=== PATIENT | female | born 1965 | race Caucasian/White ===

== ENCOUNTER 2019-06-20 12:26 | Emergency (ER) | payer MEDICAID ==
[~2019-06-20] VITALS: Ht 162.6 cm; Wt 72.4 kg
--- NOTE | 2019-06-20 13:10 | PHYS DOC ---
Past History Past Medical History: Cancer, COPD, Diabetes, High Cholesterol, Hypothyroid, Seizure, Stroke, Other Additional Past Medical Histor: gout, colon cancer, scoliosis, cererbellar ataxia, Past Surgical History: Other Smoking: Cigarettes, Greater than 1 pack/day Alcohol Use: None Drug Use: None Adult General Chief Complaint Chief Complaint: MECHANICAL FALL HPI HPI Patient is a 54-year-old female with a history of spinal cerebellar ataxia presents to the ED after a fall. Patient states yesterday she slipped on ice on a concrete porch and fell on her left side. Patient reports hitting the left side of her head on the ground without loss of consciousness, but reports see a person who was not really there after. Patient mentions that she normally uses an electric chair for mobility but the chairs broke down currently. Patient endorses 4 falls in the last week. Patient was seen in the ED on June 13, 2019 following a fall on the fourth. Patient states she received an x-ray of her hip and was sent home that night. Patient reports she is on blood thinners for atrial fibrillation. Patient endorses left rib pain, left arm pain, and left upper leg pain that is rated as a 10/10. Patient denies chest pain, shortness of breath, fevers, or n/v/d. Review of Systems Review of Systems Constitutional: Denies fever or chills Eyes: Denies redness or eye pain HENT: Denies nasal congestion or sore throat Respiratory: Denies cough or shortness of breath Cardiovascular: Denies chest pain or palpitations GI: Denies abdominal pain, nausea, or vomiting : Denies dysuria or hematuria Musculoskeletal: Reports left upper arm pain, left rib pain, left upper leg pain. Integument: Denies rash or skin lesions Neurologic: Denies headache, focal weakness or sensory changes Complete systems were reviewed and found to be within normal limits, except as documented in this note. Allergies Allergies Allergies Coded Allergies Type Severity Reaction Last Updated Verified No Known Drug Allergies 06/15/19 No Physical Exam Physical Exam Constitutional: Well developed, well nourished, mild distress, non-toxic appeara nce HENT: Normocephalic, atraumatic, oropharynx moist, TMs clear Eyes: PERRL, EOMI, conjunctiva normal, no discharge Neck: Normal range of motion, no midline tenderness, supple Cardiovascular: Heart rate normal, regular rhythm Lungs & Thorax: Bilateral breath sounds clear to auscultation, no wheezing Abdomen: Soft, no tenderness Skin: Warm, dry, no erythema, no rash Back: No tenderness, no CVA tenderness Extremities: Tenderness to palpation of the left upper arm, left ribs, left upper leg decreased range of motion. No obvious or palpable bony deformity, edema, erythema, ecchymosis. Neurologic: Alert and oriented X 3, normal motor function, normal sensory function, no focal deficits noted Psychologic: Affect normal, judgement normal, mood normal Current Patient Data Vital Signs Vital Signs Date Time Temp Pulse Resp B/P (MAP) Pulse Ox O2 Delivery O2 Flow Rate FiO2 06/20/19 12:37 98.2 81 16 96 Room Air EKG EKG [] Radiology/Procedures Radiology/Procedures PROCEDURE: CT HEAD AND CERVICAL SPINE WO EXAM: CT Head without IV contrast INDICATION: Pain after a fall. TECHNIQUE: Multi-detector row CT images were obtained of the head without the use of IV contrast. All CT scans performed at this facility utilize dose optimization techniques as appropriate to the exam, including the following: Automated exposure control and adjustment of the mA and/or KV according to patient size (this includes techniques or standardized protocols for targeted exams where dose is indication/reason for exam). DLP 816.6 mGycm COMPARISON: None FINDINGS: BRAIN PARENCHYMA: No evidence of acute intraparenchymal hemorrhage or infarct. Mild white matter low density compatible with chronic ischemic microvascular change. VENTRICLES & EXTRA-AXIAL SPACES: Ventricles are within normal limits. Basilar cisterns are patent. No pathologic extra-axial fluid collection or mass. ORBITS: Orbital contents are unremarkable. SINUSES: Visualized paranasal sinuses and mastoid air cells are clear. OSSEOUS & SOFT TISSUES: Calvarium and skull base are intact. IMPRESSION: 1. No acute intracranial process. 2. Mild white matter low-density compatible with chronic ischemic microvascular change. EXAM: CT Cervical Spine without IV contrast INDICATION: Pain after a fall TECHNIQUE: Multi-detector row CT images were obtained through the cervical spine without the use of IV contrast. Post-processing sagittal and coronal reconstructed images were obtained for interpretation. All CT scans performed at this facility utilize dose optimization techniques as appropriate to the exam, including the following: Automated exposure control and adjustment of the mA and/or KV according to patient size (this includes techniques or standardized protocols for targeted exams where dose is indication/reason for exam). DLP 435.8 mGycm COMPARISON: None FINDINGS: CRANIOCERVICAL JUNCTION: Unremarkable. ALIGNMENT: Alignment is within normal limits. OSSEOUS: No evidence of fracture or bone destruction. Well-circumscribed lucency at the anterior aspect of C6 is favored to represent a small intraosseous hemangioma.. DISC SPACES: Mild multilevel degenerative spondylosis with mild narrowing and minimal uncovertebral spurring, best appreciated at C5-C6 and C6-C7. FACET JOINTS: Unremarkable. SPINAL CANAL: Central disc protrusion at C3-C4 and at C4-C5 result in mild central canal narrowing. NEUROFORAMINA: Varying degrees of foraminal narrowing due to predominantly disc degenerative change. SOFT TISSUES: Unremarkable. IMPRESSION: 1. No acute traumatic findings in the cervical spine. 2. There are disc protrusions at C3-C4 and C4-C5 that could potentially impinge on the cervical cord. These could be further evaluated with MRI if clinically warranted. Electronically signed by: Armand Toledo MD (06/20/2019 1:43 PM) [facility] PROCEDURE: CT CHEST ABD PELVIS W/CONTRAST CT CHEST ABD PELVIS W/CONTRAST Indication: Pain after multiple falls. No specific area of pain or tenderness. Exposure: One or more of the following individualized dose reduction techniques were utilized for this examination: 1. Automated exposure control 2. Adjustment of the mA and/or kV according to patient size 3. Use of iterative reconstruction technique. Technique: Intravenous contrast was given. No oral contrast per request. Comparison: None CHEST: Main central pulmonary arteries are grossly patent. Mild irregularity of the wall of the ascending aorta is likely due to pulsatility artifact. Ascending aorta measures 3.4 cm diameter. No evidence of aortic aneurysm or definite dissection. The proximal great vessels appear patent. Visualized thyroid appears unremarkable. Small axillary lymph nodes bilaterally, measuring up to 9 mm in short axis. Mildly prominent bilateral hilar and mediastinal lymph nodes. Precarinal lymph node measures 9 mm short axis. No definite pathologic lymph node enlargement is suspected. Coronary artery calcifications. No evidence of pericardial effusion. No significant pleural effusion. Esophagus appears unremarkable. Small noncalcified right upper lobe pulmonary nodule, measures 3 mm, series 4, image 41. No evidence of consolidating infiltrate. No evidence of pneumothorax. Trachea and mainstem bronchi are patent. Mild degenerative spondylosis. Vertebral body height and alignment are intact. No evidence of a displaced rib fracture, although a specific area of point tenderness is not known. Abdomen pelvis: Liver is mildly enlarged. Liver may be slightly hypodense as can be seen with steatosis. Focal area of relative increased density within the central liver along the central portal veins. This has an irregular morphology and appears to conform to the adjacent anatomy rather than anatomic distortion and mass effect. Therefore this may represent an area of focal fatty sparing rather than an actual mass. Measures about 3.6 cm. No other liver lesion is identified. Spleen is not enlarged. Spleen demonstrates a heterogeneous density pattern, slightly greater density along its periphery. Significance uncertain. Pancreas appears unremarkable. No evidence of adrenal mass. Kidneys demonstrate symmetric enhancement. The right kidney demonstrates a lobulated morphology with areas of cortical atrophy/scarring. Small hypodense lesion in the right kidney measures 8 mm, too small to characterize but may represent a cyst. Low-density lesion at the posterior upper pole of the right kidney measures 15 mm and 25 Hounsfield units, slightly greater than what would be seen with a simple cyst. No evidence of hydronephrosis. No evidence of perinephric stranding. Nonobstructive 5 mm calculus in the lower pole the right kidney. Gallbladder surgically absent. Aorta mildly calcified without aneurysm. No evidence of pathologic lymph node enlargement. Stomach is not abnormally distended. No significant small bowel dilatation. Question of mild wall thickening of the duodenum and jejunum but no evidence of adjacent inflammatory stranding. Left lower quadrant ostomy is noted containing some herniated fat. Mild wall thickening of the colon distal to the colostomy may just be due to nondistention. No evidence of acute colitis or paracolonic fatty stranding. The appendix is not clearly visualized. No significant ascites. No evidence of pneumoperitoneum. Urinary bladder mildly distended without abnormal wall thickening. No evidence of pelvic mass. Vertebral body height and alignment are intact. Degenerative changes of the spine and facet joints. Minimal anterolisthesis of L4 relative to L3 and L5, likely degenerative. IMPRESSION: 1. Prominent thoracic lymph nodes, may just be reactive. No convincingly pathologic enlargement is seen. 2. Tiny 3 mm right upper lobe pulmonary nodule. As per revised Fleischner guidelines, no follow-up is necessary if patient is low risk. If high risk, follow-up chest scan in 12 months. 3. Suspect mild hepatomegaly with steatosis. 4. Area of mild relative hyperdensity in the portal region of the liver, does not demonstrate masslike configuration, therefore may just represent focal area of geographic fatty sparing. Depending on clinical concern, this could be further evaluated with outpatient MR of the liver. 5. Multiple areas of cortical scarring or atrophy in the right kidney. 6. Nonobstructive 5 mm right lower pole renal calculus. 7. Low-density lesion at the left kidney, measures slightly greater than simple cystic density. This may represent a slightly complex or hemorrhagic cyst, but solid mass difficult to exclude. Could be further evaluated with outpatient renal ultrasound. 8. Mild wall thickening of the colon distal to the colostomy, probably just due to nondistention. Electronically signed by: Elvia Hsu MD (06/20/2019 3:08 PM) [facility] Course & Med Decision Making Course & Med Decision Making Pertinent Labs and Imaging studies reviewed. (See chart for details) Patient with a history of spinal cerebellar ataxia presents to the ED fall yesterday. Mechanism: Patient slipped on ice and fell on her left side onto the concrete striking her head. Patient worked up in the ED for a fall on the seventh normal imaging the hip. Due to increased frequency of falls and history of anticoagulation medication order labs and imaging to assess. Imaging unremarkable for fractures or bleeding. Extensive discussion with patient regarding imaging findings including pulmonary nodule and need for follow-up with PCP. Patient states she has Valium and hydrocodone at home for pain. We'll send home with Lidoderm patches, naproxen, and Spirometer. Patient was thankful and agreeable with plan. Patient stable for discharge with outpatient follow-up with PCP. Discussed findings and plan with patient and family, who acknowledge understanding and agreement. Dragon Disclaimer Dragon Disclaimer This electronic medical record was generated, in whole or in part, using a voice recognition dictation system. Departure Departure: Impression: Primary Impression: Fall Additional Impressions: Shoulder pain Chest wall contusion Disposition: 01 HOME, SELF-CARE Condition: STABLE Referrals: PCP,NO (PCP) Patient Instructions: Blunt Chest Trauma, Fall Prevention and Home Safety, [id number], Incentive Spirometer, Shoulder Pain, [id number] Scripts Lidocaine/Menthol (LIDOPATCH) 1 Each Adh..patch 1 MISAEL TP BID for pain for 30 Days, #[address] patch on clear area and leave on for first 12 hours. Remove for next 12 hours before placing a new patch. Prov: ELVIA LASSITER DO 06/20/19 Naproxen (NAPROXEN) 375 Mg Tablet. 375 MG PO TID PRN for PAIN, #30 TAB Prov: ELVIA LASSITER DO 06/20/19 Problem Qualifiers Primary Impression: Fall Encounter type: initial encounter Qualified Codes: W19.XXXA - Unspecified fall, initial encounter Additional Impressions: Shoulder pain Chronicity: acute Laterality: left Qualified Codes: M25.512 - Pain in left shoulder Chest wall contusion Encounter type: initial encounter Laterality: left Qualified Codes: S20.212A - Contusion of left front wall of thorax, initial encounter ELVIA LASSITER DO Jun 20, 2019 13:10
[2019-06-20] MEDS ORDERED: IV NORMAL SALINE 1,000ML 1,000 ML IV ONE (13:15)
[2019-06-20 13:22] LABS: BASO # 0.1 x10^3/uL (0.0-0.2); BASO % 1 % (0-3); EOS # 0.3 x10^3/uL (0.0-0.7); EOS % 4 % (0-3); HEMATOCRIT 39.4 % (36.0-47.0); HEMOGLOBIN 13.7 g/dL (12.0-15.5); LYMPH % 28 % (24-48); MEAN CORPUSCULAR HEMOGLOBIN 32 pg (25-35); MEAN CORPUSCULAR HGB CONC 35 g/dL (31-37); MEAN CORPUSCULAR VOLUME 91 fL (79-100); MONO # 0.6 x10^3/uL (0.0-1.1); MONO % 8 % (0-9); NEUT # 4.2 x10^3uL (1.8-7.7); NEUT % 59 % (31-73); PLATELET COUNT 260 x10^3/uL (140-400); RED BLOOD COUNT 4.35 x10^6/uL (3.50-5.40); WHITE BLOOD COUNT 7.2 x10^3/uL (4.0-11.0)
[2019-06-20 13:31] LABS: CALCIUM 8.3 mg/dL (8.5-10.1); CREATININE 0.8 mg/dL (0.6-1.0); GFR 74.5; POTASSIUM 4.1 mmol/L (3.5-5.1)
[2019-06-20 13:46] LABS: ALBUMIN 3.2 g/dL (3.4-5.0); MAGNESIUM 2.1 mg/dL (1.8-2.4); TOTAL BILIRUBIN 0.2 mg/dL (0.2-1.0); TOTAL PROTEIN 6.5 g/dL (6.4-8.2)
--- NOTE | 2019-06-20 13:46 | RAD ---
EXAM: CT Head without IV contrast INDICATION: Pain after a fall. TECHNIQUE: Multi-detector row CT images were obtained of the head without the use of IV contrast. All CT scans performed at this facility utilize dose optimization techniques as appropriate to the exam, including the following: Automated exposure control and adjustment of the mA and/or KV according to patient size (this includes techniques or standardized protocols for targeted exams where dose is indication/reason for exam). DLP 816.6 mGycm COMPARISON: None FINDINGS: BRAIN PARENCHYMA: No evidence of acute intraparenchymal hemorrhage or infarct. Mild white matter low density compatible with chronic ischemic microvascular change. VENTRICLES & EXTRA-AXIAL SPACES: Ventricles are within normal limits. Basilar cisterns are patent. No pathologic extra-axial fluid collection or mass. ORBITS: Orbital contents are unremarkable. SINUSES: Visualized paranasal sinuses and mastoid air cells are clear. OSSEOUS & SOFT TISSUES: Calvarium and skull base are intact. IMPRESSION: 1. No acute intracranial process. 2. Mild white matter low-density compatible with chronic ischemic microvascular change. EXAM: CT Cervical Spine without IV contrast INDICATION: Pain after a fall TECHNIQUE: Multi-detector row CT images were obtained through the cervical spine without the use of IV contrast. Post-processing sagittal and coronal reconstructed images were obtained for interpretation. All CT scans performed at this facility utilize dose optimization techniques as appropriate to the exam, including the following: Automated exposure control and adjustment of the mA and/or KV according to patient size (this includes techniques or standardized protocols for targeted exams where dose is indication/reason for exam). DLP 435.8 mGycm COMPARISON: None FINDINGS: CRANIOCERVICAL JUNCTION: Unremarkable. ALIGNMENT: Alignment is within normal limits. OSSEOUS: No evidence of fracture or bone destruction. Well-circumscribed lucency at the anterior aspect of C6 is favored to represent a small intraosseous hemangioma.. DISC SPACES: Mild multilevel degenerative spondylosis with mild narrowing and minimal uncovertebral spurring, best appreciated at C5-C6 and C6-C7. FACET JOINTS: Unremarkable. SPINAL CANAL: Central disc protrusion at C3-C4 and at C4-C5 result in mild central canal narrowing. NEUROFORAMINA: Varying degrees of foraminal narrowing due to predominantly disc degenerative change. SOFT TISSUES: Unremarkable. IMPRESSION: 1. No acute traumatic findings in the cervical spine. 2. There are disc protrusions at C3-C4 and C4-C5 that could potentially impinge on the cervical cord. These could be further evaluated with MRI if clinically warranted. Electronically signed by: Armand Toledo MD (06/20/2019 1:43 PM) [facility]
[2019-06-20] MEDS ORDERED: IOHEXOL 300 MG/ML 75 ML VIAL. IV ONE (14:00)
--- NOTE | 2019-06-20 15:11 | RAD ---
CT CHEST ABD PELVIS W/CONTRAST Indication: Pain after multiple falls. No specific area of pain or tenderness. Exposure: One or more of the following individualized dose reduction techniques were utilized for this examination: 1. Automated exposure control 2. Adjustment of the mA and/or kV according to patient size 3. Use of iterative reconstruction technique. Technique: Intravenous contrast was given. No oral contrast per request. Comparison: None CHEST: Main central pulmonary arteries are grossly patent. Mild irregularity of the wall of the ascending aorta is likely due to pulsatility artifact. Ascending aorta measures 3.4 cm diameter. No evidence of aortic aneurysm or definite dissection. The proximal great vessels appear patent. Visualized thyroid appears unremarkable. Small axillary lymph nodes bilaterally, measuring up to 9 mm in short axis. Mildly prominent bilateral hilar and mediastinal lymph nodes. Precarinal lymph node measures 9 mm short axis. No definite pathologic lymph node enlargement is suspected. Coronary artery calcifications. No evidence of pericardial effusion. No significant pleural effusion. Esophagus appears unremarkable. Small noncalcified right upper lobe pulmonary nodule, measures 3 mm, series 4, image 41. No evidence of consolidating infiltrate. No evidence of pneumothorax. Trachea and mainstem bronchi are patent. Mild degenerative spondylosis. Vertebral body height and alignment are intact. No evidence of a displaced rib fracture, although a specific area of point tenderness is not known. Abdomen pelvis: Liver is mildly enlarged. Liver may be slightly hypodense as can be seen with steatosis. Focal area of relative increased density within the central liver along the central portal veins. This has an irregular morphology and appears to conform to the adjacent anatomy rather than anatomic distortion and mass effect. Therefore this may represent an area of focal fatty sparing rather than an actual mass. Measures about 3.6 cm. No other liver lesion is identified. Spleen is not enlarged. Spleen demonstrates a heterogeneous density pattern, slightly greater density along its periphery. Significance uncertain. Pancreas appears unremarkable. No evidence of adrenal mass. Kidneys demonstrate symmetric enhancement. The right kidney demonstrates a lobulated morphology with areas of cortical atrophy/scarring. Small hypodense lesion in the right kidney measures 8 mm, too small to characterize but may represent a cyst. Low-density lesion at the posterior upper pole of the right kidney measures 15 mm and 25 Hounsfield units, slightly greater than what would be seen with a simple cyst. No evidence of hydronephrosis. No evidence of perinephric stranding. Nonobstructive 5 mm calculus in the lower pole the right kidney. Gallbladder surgically absent. Aorta mildly calcified without aneurysm. No evidence of pathologic lymph node enlargement. Stomach is not abnormally distended. No significant small bowel dilatation. Question of mild wall thickening of the duodenum and jejunum but no evidence of adjacent inflammatory stranding. Left lower quadrant ostomy is noted containing some herniated fat. Mild wall thickening of the colon distal to the colostomy may just be due to nondistention. No evidence of acute colitis or paracolonic fatty stranding. The appendix is not clearly visualized. No significant ascites. No evidence of pneumoperitoneum. Urinary bladder mildly distended without abnormal wall thickening. No evidence of pelvic mass. Vertebral body height and alignment are intact. Degenerative changes of the spine and facet joints. Minimal anterolisthesis of L4 relative to L3 and L5, likely degenerative. IMPRESSION: 1. Prominent thoracic lymph nodes, may just be reactive. No convincingly pathologic enlargement is seen. 2. Tiny 3 mm right upper lobe pulmonary nodule. As per revised Fleischner guidelines, no follow-up is necessary if patient is low risk. If high risk, follow-up chest scan in 12 months. 3. Suspect mild hepatomegaly with steatosis. 4. Area of mild relative hyperdensity in the portal region of the liver, does not demonstrate masslike configuration, therefore may just represent focal area of geographic fatty sparing. Depending on clinical concern, this could be further evaluated with outpatient MR of the liver. 5. Multiple areas of cortical scarring or atrophy in the right kidney. 6. Nonobstructive 5 mm right lower pole renal calculus. 7. Low-density lesion at the left kidney, measures slightly greater than simple cystic density. This may represent a slightly complex or hemorrhagic cyst, but solid mass difficult to exclude. Could be further evaluated with outpatient renal ultrasound. 8. Mild wall thickening of the colon distal to the colostomy, probably just due to nondistention. Electronically signed by: Adeel Hsu MD (06/20/2019 3:08 PM) [facility]
[2019-06-20 15:22] LABS: BACTERIA,URINE 0 /HPF (0-FEW); BILIRUBIN,URINE NEG (NEG); CLARITY,URINE CLEAR; COLOR,URINE STRAW; GLUCOSE,URINE NEG (NEG); NITRITE,URINE NEG (NEG); RBC,URINE RARE /HPF (0-2); SQUAMOUS EPITHELIAL CELL,UR OCC /LPF; UROBILINOGEN,URINE 0.2 mg/dL (0.2 mg/dL)
[2019-06-20 15:23] LABS: WBC,URINE OCC /HPF (0-4)
[2019-06-20 15:40] VITALS: BP 145/81
[2019-06-20] MEDS ORDERED: NAPR375T5 PO (15:44)
[2019-06-20] MEDS ORDERED: LIDO1ADH TP (15:44)
[2019-07-10] MEDS ORDERED: FLUO20CA19 PO (02:23)
== END 2019-06-20 15:51 | disposition home or self-care (01) ==
LOC: MERGE 12:26 → ER 12:26
DX: S20.212A Contusion of left front wall of thorax, initial encounter (principal); M25.512 Pain in left shoulder; M79.605 Pain in left leg; J44.9 Chronic obstructive pulmonary disease, unspecified; E11.9 Type 2 diabetes mellitus without complications; E03.9 Hypothyroidism, unspecified; F17.210 Nicotine dependence, cigarettes, uncomplicated; Z86.73 Personal history of transient ischemic attack (TIA), and cerebral infarction without residual deficits; Z79.01 Long term (current) use of anticoagulants; W00.0XXA Fall on same level due to ice and snow, initial encounter; Y93.89 Activity, other specified; Y92.89 Other specified places as the place of occurrence of the external cause; Y99.8 Other external cause status
CPT/HCPCS: 36415; 70450; 71260; 72125; 73060; 74177; 80053; 81001; 82553; 83690; 83735; 84484; 85025; 85610; 85730; 96374; 96376; 99285; J3010; Q9967; 96361; J7030

== ENCOUNTER 2019-07-09 19:03 | Inpatient (IN) | payer SELFPAY ==
[~2019-07-09] VITALS: Ht 162.6 cm; Wt 75.7 kg
[~2019-07-09 19:03] MED LIST: LIDO1ADH TP; NAPR375T5 PO
--- NOTE | 2019-07-09 19:09 | PHYS DOC ---
Past History Past Medical History: Anxiety, Cancer, COPD, Depression, Diabetes, Fibromyalgia, High Cholesterol, Hypertension, Hypothyroid, Seizure, Stroke, Other Additional Past Medical Histor: gout, colon cancer, scoliosis, cererbellar ataxia, Past Surgical History: Cancer Surgery, Colectomy, Other Smoking: Cigarettes, Greater than 1 pack/day Alcohol Use: None Drug Use: None Adult General Chief Complaint Chief Complaint: ABDOMINAL PAIN>> ..." My stomach hurts... hurts.. I am sick... ".." My chest hurts.. " .." I just hurt..." HPI HPI Patient is a 54 year old female who presents with above hx and complaints denies abdomen pain but some localization to epigastric area patient is an extremely poor historian. Patient history of present illness and current presentation primary of pain from relatives that brought her to the emergency department. She is moving to [facility] from [facility]. Pt. follows with a Dr. Laura Dubose in [facility]. Patient reportedly has very poor intake today per family. Patient has not been taking any of her meds correctly. Patient has reportedly significant medical history: History with history of colon cancer and resection approximately 3 years ago, chemo x 1 1/2 yrs. Hx multiple polyps prior to dx of + biopsy- resulting in colon resection, COPD, elevated cholesterol, diabetes, hypothyroidism, seizure disorder, CVA post head contusion, gout, scoliosis, cerebellar ataxia, tobacco abuse, insomnia, fibromyalgia, chronic pain, anxiety disorder, hypertension, bipolar affective disorder and a history of noncompliance with medical management. Patient reportedly on multiple meds D uloxetine 60 bid, Fluxetine 20mg qday, Gabapentin 600 bid, Naproxen 325 tid, Levetivacetam 1000 bid, Levothryroxine 150 brice q day,Diazepam 5 mg tid, Ezetimiber/Sim. 10/40 q HS, Motelukast 10 mg q HS, VIMPAT 200 mg bid, Hydrocodone 10/325 tidprn pain, Pt. seen twice in our ED recently for Fall complaints on 06/13 and 06/20. Patient denies any history of immunosuppression. Family about advises patient is frequently uncooperative and very stubborn. Patient does smoke tobacco heavily. Review of Systems Review of Systems Constitutional: Denies fever or chills [] Eyes: Denies change in visual acuity, redness, or eye pain [] HENT: Denies nasal congestion or sore throat [] Respiratory: Denies cough or shortness of breath [] Cardiovascular: No additional information not addressed in HPI [] GI: Complaints of generalized abdominal pain, nausea, with some localization to epigastric area, complaints of vomiting. Patient denies any bloody or tarry stools from her colostomy, bloody stools or diarrhea [] : Denies dysuria or hematuria [] Musculoskeletal: Denies back pain or joint pain [] Integument: Denies rash or skin lesions [] Neurologic: Complaints of headache,. Patient denies any new focal weakness or se nsory changes [] Endocrine: Denies polyuria or polydipsia [] All other systems were reviewed and found to be within normal limits, except as documented in this note. Family History Family History Currently limited because of patient's minimal interaction Current Medications Current Medications See nursing for home meds Allergies Allergies Allergies Coded Allergies Type Severity Reaction Last Updated Verified No Known Drug Allergies 06/28/19 No Physical Exam Physical Exam Constitutional: Moderate acute distress, non-toxic appearance. [] HENT: Normocephalic, atraumatic, bilateral external ears normal, oropharynx moist, no oral exudates, nose normal. Edentulous Eyes: PERRLA, EOMI, conjunctiva normal, no discharge. [] Neck: Normal range of motion, no tenderness, supple, no stridor. [] Cardiovascular: Tachycardia Heart rate regular rhythm, no murmur [] Lungs & Thorax: Bilateral breath sounds equal at apex with scattered wheezes throughout on auscultation []. Some skin breakdown under breasts bilaterally with findings of scarring. Abdomen: Bowel sounds normal, soft, generalized tenderness, no masses, no pulsatile masses. []Large midline incision. Colostomy on left lower quadrant . Pain on rebound to epigastric area Skin: Warm, dry, no erythema, no rash. [] Back: No tenderness, no CVA tenderness. [] Extremities: No tenderness, no cyanosis, no clubbing, ROM intact, no edema. [] Neurologic: Alert however at times seems disoriented, is currently moving all extremities , and we'll respond request to move her extremities and has distal sensory function, no new close focal deficits noted as per family. Patient is discoordinated and does exhibit some ataxia type movements- family states this is normal for her Psychologic: Affect anxious, judgement is impaired at times- fluctuating [employer], with moments of agitation. EKG EKG I interpretation EKG shows a sinus tachycardia 104 beats. There is findings consistent with fascicular block and RVH. Does not appear to have STEMI changes with contralateral changes. There is some baseline artifact due to her move ment[] Radiology/Procedures Radiology/Procedures [][address] [address] IMAGING REPORT Signed PATIENT: JOSE RAMON MENDOZA BACCOUNT: [id number] : 1965 LOCATION: ER AGE: 54 SEX: F EXAM STATUS: REG ER ORD. PHYSICIAN: NEY PARIS MD REASON: fall, ABDOMEN PAIN, OMNI 350, 90ml PROCEDURE: CT ANGIO CHEST W ABD PEL W/ CT ANGIO CHEST W ABD PEL W/ Clinical Indication: Fall, pain COMPARISON: 06/20/2019 TECHNIQUE: Multiple contiguous axial images were obtained throughout the chest, abdomen, and pelvis with the use of IV contrast. Axial images were reformatted into coronal and sagittal planes. 90 mL Isovue-370 was administered. MIP reconstructions were also obtained. One or more of the following dose reduction techniques were utilized: Automated exposure control (AEC), Adjustment of mA and/or kV according to patient size, Use of iterative reconstruction technique such as ASiR, CT scan done according to ALARA and image gently/image wisely. Findings: The thyroid is symmetric. There is no axillary, mediastinal, or hilar adenopathy. No supraclavicular lymphadenopathy. Unchanged small bilateral axillary lymph nodes. No mediastinal, hilar or retrocrural lymphadenopathy. Normal cardiac size. Coronary artery atherosclerotic disease. No pericardial effusion. Mild atherosclerosis of the thoracic aorta. No evidence of pulmonary thromboembolic disease. No pulmonary mass or consolidation. No pleural effusion is observed. There is no pneumothorax. Hepatic steatosis. The liver, spleen, pancreas, and adrenal glands are otherwise unremarkable. Cholecystectomy. Right renal scarring. Stable small renal hypodensities. 5 mm nonobstructive right renal calculus. There is no significant mesenteric or retroperitoneal adenopathy identified. There is no evidence of free intraperitoneal fluid or pneumoperitoneum. Mild aortoiliac atherosclerotic disease. No dilated small bowel. Left lower quadrant colostomy. The bladder and distal ureters are unremarkable. There is no significant pelvic ascites. No significant iliac or inguinal adenopathy is identified. Degenerative changes of the spine. IMPRESSION: 1. No evidence of pulmonary thromboembolic disease. 2. No evidence of major traumatic injury to the chest abdomen or pelvis. Electronically signed by: Aurea Kessler MD (07/09/2019 10:42 PM) [facility] DICTATED AND SIGNED BY: AUREA KESSLER MD DATE: 07/09/192241 CC: NEY PARIS MD; PCP,NO ~ [place] [id number] IMAGING REPORT Signed PATIENT: JOSE RAMON MENDOZA BACCOUNT: [id number] : 1965 LOCATION: ER AGE: 54 SEX: F EXAM STATUS: REG ER ORD. PHYSICIAN: NEY PARIS MD REASON: fall PROCEDURE: CT HEAD AND CERVICAL SPINE WO CT head and cervical spine without contrast 07/09/2019. Reason for exam: Pain after falling. Noncontrast images were performed. Sagittal and coronal reconstructions were obtained. Exposure: One or more of the following individualized dose reduction techniques were utilized for this examination: 1. Automated exposure control 2. Adjustment of the mA and/or kV according to patient size 3. Use of iterative reconstruction technique. CT head findings: There is no apparent intracranial hemorrhage or abnormal extra-axial fluid collection. No area of abnormal density is seen in the brain. The ventricles and basilar cisterns are normally positioned. Bone windows show no apparent fracture of the skull or abnormal sinus or mastoid opacification. IMPRESSION: No apparent acute abnormality. CT cervical spine findings: Alignment is normal. There is no loss of vertebral body height or prevertebral soft tissue swelling. No fracture line is seen. The intervertebral discs show no significant narrowing. There are prominent anterior osteophytes at C4-5 and C6-7. No destructive process is seen. Evaluation of the soft tissue components of the canal is limited without intrathecal contrast. IMPRESSION: Degenerative changes. No apparent acute abnormality. Electronically signed by: Marvin Marino Jr., MD (07/09/2019 8:57 PM) [id number] DICTATED AND SIGNED BY: MARVIN MARINO Jr, MD DATE: 07/09/192056 CC: NEY PARIS MD; PCP,NO ~ Course & Med Decision Making Course & Med Decision Making Pertinent Labs and Imaging studies reviewed. (See chart for details) Pt. admitted to Dr. Vo and consult with cardiology. Heart Score - 4-5 Impression- 1. Abdomen pain generalized in some localization epigastric 2. Elevated alkaline phosphatase 133 3. Elevated CK 302 4. Positive drug screen for methamphetamine and benzos ( Pt is on Valium) 5. Tobacco abuse 6. History of colon cancer with resection-3 years ago 7. Dysrhythmia-tachycardia with fascicular block 8. Accelerated HTN 9. Hx. Seizure Disorder 10.Hx. Medical Non-compliance 11. Chest Pain Atypical 12. Hx. Ataxia 13. Anxiety Disorder 14. Hx. Bipolar Affective Disorder [] Dragon Disclaimer Dragon Disclaimer This electronic medical record was generated, in whole or in part, using a voice recognition dictation system. Departure Departure: Disposition: 01 HOME/RESIDENCE PRIOR TO ADM Condition: STABLE Referrals: PCP,GISSEL (PCP) Amber Disclaimer This chart was dictated in whole or in part using Voice Recognition software in a busy, high-work load, and often noisy Emergency Department environment. It may contain unintended and wholly unrecognized errors or omissions. NEY PARIS MD Jul 09, 2019 19:09
[2019-07-09] MEDS ORDERED: IV RINGERS SOLUTION,LACTATED 1,000 ML IV SCH (19:11)
[2019-07-09] MEDS ORDERED: KETOROLAC 30 MG/ML VIAL. IVP ONE (19:15)
[2019-07-09] MEDS ORDERED: FAMOTIDINE 20 MG/2 ML VIAL IVP ONE (19:15)
[2019-07-09] MEDS ORDERED: ONDANSETRON PF 4 MG/2 ML VIAL. IVP ONE (19:15)
[2019-07-09] MEDS ORDERED: MIDAZOLAM HCL PF 5 MG/5 ML VIAL. IV PRN ×2 (19:45→20:15)
[2019-07-09 19:54] LABS: BASO # 0.1 x10^3/uL (0.0-0.2); BASO % 1 % (0-3); EOS # 0.4 x10^3/uL (0.0-0.7); EOS % 4 % (0-3); HEMATOCRIT 44.5 % (36.0-47.0); HEMOGLOBIN 14.8 g/dL (12.0-15.5); LYMPH # 2.4 x10^3/uL (1.0-4.8); LYMPH % 25 % (24-48); MEAN CORPUSCULAR HEMOGLOBIN 31 pg (25-35); MEAN CORPUSCULAR HGB CONC 33 g/dL (31-37); MEAN CORPUSCULAR VOLUME 92 fL (79-100); MONO # 0.7 x10^3/uL (0.0-1.1); MONO % 7 % (0-9); NEUT # 6.1 x10^3uL (1.8-7.7); NEUT % 63 % (31-73); PLATELET COUNT 309 x10^3/uL (140-400); RED BLOOD COUNT 4.85 x10^6/uL (3.50-5.40); RED CELL DISTRIBUTION WIDTH 13.9 % (11.5-14.5); WHITE BLOOD COUNT 9.7 x10^3/uL (4.0-11.0)
[2019-07-09 20:00] LABS: CALCIUM 9.5 mg/dL (8.5-10.1); CREATININE 0.8 mg/dL (0.6-1.0); GFR 74.5; POTASSIUM 3.5 mmol/L (3.5-5.1)
[2019-07-09] MEDS ORDERED: IOHEXOL 240 MG/ML 50ML VIAL. PO ONE (20:00)
[2019-07-09] MEDS ORDERED: CONTRAST GIVEN MC PRN (20:00)
[2019-07-09] MEDS ORDERED: IOHEXOL 350 MG/ML 100 ML VIAL. IV ONE (20:00)
[2019-07-09 20:03] LABS: BGAS PH 7.53 (7.35-7.45)
[2019-07-09 20:06] LABS: BARBITURATES NEG (NEG); BENZODIAZEPINES POS (NEG); CANNABINOIDS NEG (NEG); COCAINE NEG (NEG); METHADONE NEG (NEG); OPIATES NEG (NEG); PHENCYCLIDINE NEG (NEG)
[2019-07-09 20:07] LABS: ALBUMIN 4.1 g/dL (3.4-5.0); DIRECT BILIRUBIN 0.1 mg/dL (0.0-0.2); TOTAL BILIRUBIN 0.3 mg/dL (0.2-1.0); TOTAL PROTEIN 7.7 g/dL (6.4-8.2)
[2019-07-09 20:08] LABS: BACTERIA,URINE 0 /HPF (0-FEW); BILIRUBIN,URINE NEG (NEG); CLARITY,URINE CLEAR; COLOR,URINE STRAW; GLUCOSE,URINE NEG (NEG); NITRITE,URINE NEG (NEG); RBC,URINE RARE /HPF (0-2); SQUAMOUS EPITHELIAL CELL,UR OCC /LPF; UROBILINOGEN,URINE 0.2 mg/dL (0.2 mg/dL); WBC,URINE OCC /HPF (0-4)
[2019-07-09 20:11] LABS: AMPHETAMINE/METHAMPHETAMINE POS (NEG)
[2019-07-09 20:16] LABS: INFLUENZA A PATIENT NEGATIVE (NEGATIVE); INFLUENZA B PATIENT NEGATIVE (NEGATIVE)
--- NOTE | 2019-07-09 21:00 | RAD ---
CT head and cervical spine without contrast 07/09/2019. Reason for exam: Pain after falling. Noncontrast images were performed. Sagittal and coronal reconstructions were obtained. Exposure: One or more of the following individualized dose reduction techniques were utilized for this examination: 1. Automated exposure control 2. Adjustment of the mA and/or kV according to patient size 3. Use of iterative reconstruction technique. CT head findings: There is no apparent intracranial hemorrhage or abnormal extra-axial fluid collection. No area of abnormal density is seen in the brain. The ventricles and basilar cisterns are normally positioned. Bone windows show no apparent fracture of the skull or abnormal sinus or mastoid opacification. IMPRESSION: No apparent acute abnormality. CT cervical spine findings: Alignment is normal. There is no loss of vertebral body height or prevertebral soft tissue swelling. No fracture line is seen. The intervertebral discs show no significant narrowing. There are prominent anterior osteophytes at C4-5 and C6-7. No destructive process is seen. Evaluation of the soft tissue components of the canal is limited without intrathecal contrast. IMPRESSION: Degenerative changes. No apparent acute abnormality. Electronically signed by: Wes Marino Jr., MD (07/09/2019 8:57 PM) [id number]
[2019-07-09] MEDS ORDERED: cloNIDine TTS-2 1 PATCH PATCH TD ONE (22:00)
[2019-07-09] MEDS ORDERED: cloNIDine HCL 0.1 MG TABLET PO ONE (22:00)
--- NOTE | 2019-07-09 22:45 | RAD ---
CT ANGIO CHEST W ABD PEL W/ Clinical Indication: Fall, pain COMPARISON: 06/20/2019 TECHNIQUE: Multiple contiguous axial images were obtained throughout the chest, abdomen, and pelvis with the use of IV contrast. Axial images were reformatted into coronal and sagittal planes. 90 mL Isovue-370 was administered. MIP reconstructions were also obtained. One or more of the following dose reduction techniques were utilized: Automated exposure control (AEC), Adjustment of mA and/or kV according to patient size, Use of iterative reconstruction technique such as ASiR, CT scan done according to ALARA and image gently/image wisely. Findings: The thyroid is symmetric. There is no axillary, mediastinal, or hilar adenopathy. No supraclavicular lymphadenopathy. Unchanged small bilateral axillary lymph nodes. No mediastinal, hilar or retrocrural lymphadenopathy. Normal cardiac size. Coronary artery atherosclerotic disease. No pericardial effusion. Mild atherosclerosis of the thoracic aorta. No evidence of pulmonary thromboembolic disease. No pulmonary mass or consolidation. No pleural effusion is observed. There is no pneumothorax. Hepatic steatosis. The liver, spleen, pancreas, and adrenal glands are otherwise unremarkable. Cholecystectomy. Right renal scarring. Stable small renal hypodensities. 5 mm nonobstructive right renal calculus. There is no significant mesenteric or retroperitoneal adenopathy identified. There is no evidence of free intraperitoneal fluid or pneumoperitoneum. Mild aortoiliac atherosclerotic disease. No dilated small bowel. Left lower quadrant colostomy. The bladder and distal ureters are unremarkable. There is no significant pelvic ascites. No significant iliac or inguinal adenopathy is identified. Degenerative changes of the spine. IMPRESSION: 1. No evidence of pulmonary thromboembolic disease. 2. No evidence of major traumatic injury to the chest abdomen or pelvis. Electronically signed by: Varghese Kessler MD (07/09/2019 10:42 PM) [facility]
[2019-07-09] MEDS ORDERED: ONDANSETRON PF 4 MG/2 ML VIAL. IV PRN (23:15)
[2019-07-09] MEDS ORDERED: ACETAMINOPHEN 325 MG TABLET PO PRN (23:15)
[2019-07-09] MEDS: IV RINGERS SOLUTION,LACTATED 1,000 ML IV SCH (23:22)
[2019-07-10] VITALS (7 sets, daily range): BP systolic 112–158; BP diastolic 64–88
--- NOTE | 2019-07-10 00:35 | NUR ---
The patient, JOSE RAMON MENDOZA, 54 y/o, F arrived on the floor via EMS with her family following. Pt was admitted by RACHAEL BENDER MD, was given written information regarding hospital policies, unit procedures and contact persons. Valuables were checked and documented. pt vitals were taken along with pt being monitored via residential monitor. pts bed is patted because of hx of seizures. pt is in bed resting. will continue to monitor.
[2019-07-10] MEDS ORDERED: FLUO20CA20 PO (02:23)
[2019-07-10] MEDS ORDERED: LEVE10007 PO (02:23)
[2019-07-10] MEDS ORDERED: MONT10TA80 PO (02:23)
[2019-07-10] MEDS ORDERED: DIAZ5TAB4 PO (02:23)
[2019-07-10] MEDS ORDERED: NAPR-695 PO (02:23)
[2019-07-10] MEDS ORDERED: LACO200T PO (02:23)
[2019-07-10] MEDS ORDERED: GABA600T7 PO (02:23)
[2019-07-10] MEDS ORDERED: DULO60CA6 PO (02:23)
[2019-07-10] MEDS ORDERED: LEVO150T5 PO (02:23)
[2019-07-10] MEDS ORDERED: HYDR-2769 PO (02:23)
[2019-07-10] MEDS ORDERED: EZET1TAB35 PO (02:23)
[2019-07-10] MEDS ORDERED: METO50TA29 PO (02:23)
[2019-07-10] MEDS ORDERED: IPRATRPIUM/ALBUTEROL 0.5/2.5MG 3 ML NEBU. ONE (04:47)
[2019-07-10] MEDS: IPRATRPIUM/ALBUTEROL 0.5/2.5MG 3 ML NEBU. NEB SCH ×4 (04:53→20:00)
--- NOTE | 2019-07-10 06:36 | EKG ---
[address] [address] Test Date: 2019-07-09 Test Time: 19:25:10 Pat Name: JOSE RAMON MENDOZA Department: Room: Gender: F Photographic Laboratory Technician: : 1965 Requested By: NEY PARIS Order Number: [id number] Reading MD: Measurements Intervals [place] Rate: 104 P: 65 [place]: 162 QRS: -55 QRSD: 116 T: 54 QT: 384 QTc: 505 Interpretive Statements SINUS TACHYCARDIA LOW LIMB LEAD VOLTAGE LEFT ANTERIOR FASCICULAR BLOCK INCOMPLETE RIGHT BUNDLE BRANCH BLOCK RVH WITH REPOLARIZATION ABNORMALITY ABNORMAL ECG RI6.01 No previous ECG available for comparison
[2019-07-10 06:37] LABS: BASO # 0.1 x10^3/uL (0.0-0.2); BASO % 1 % (0-3); EOS # 0.3 x10^3/uL (0.0-0.7); EOS % 5 % (0-3); HEMATOCRIT 40.4 % (36.0-47.0); HEMOGLOBIN 13.6 g/dL (12.0-15.5); LYMPH # 1.8 x10^3/uL (1.0-4.8); LYMPH % 27 % (24-48); MEAN CORPUSCULAR HEMOGLOBIN 31 pg (25-35); MEAN CORPUSCULAR HGB CONC 34 g/dL (31-37); MEAN CORPUSCULAR VOLUME 91 fL (79-100); MONO # 0.6 x10^3/uL (0.0-1.1); MONO % 10 % (0-9); NEUT # 3.8 x10^3uL (1.8-7.7); NEUT % 57 % (31-73); PLATELET COUNT 263 x10^3/uL (140-400); RED BLOOD COUNT 4.43 x10^6/uL (3.50-5.40); RED CELL DISTRIBUTION WIDTH 13.8 % (11.5-14.5); WHITE BLOOD COUNT 6.6 x10^3/uL (4.0-11.0)
--- NOTE | 2019-07-10 06:37 | EKG ---
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
[2019-07-10 06:40] LABS: CALCIUM 8.5 mg/dL (8.5-10.1); CREATININE 0.7 mg/dL (0.6-1.0); GFR 86.9; POTASSIUM 3.6 mmol/L (3.5-5.1)
--- NOTE | 2019-07-10 07:46 | PDOC2 ---
CARDIAC CONSULT DATE OF CONSULT Date Of Consult DATE: 07/10/19 TIME: 07:42 REASON FOR CONSULT Reason for Consult Chest pain Accelerated HTN REFERRING PHYSICIAN Referring Physician Dr. Truong SOURCE Source: Chart review, Patient HPI History of Present Illness This is a 54 yo female who presented secondary to acute on chronic abdominal pain and pain in her upper left quadrant that extends to her left lower chest. Reports she fell recently and has been having pain on that side since. Is very painful with certain movements and by applying pressure to the left chest. No dizziness, diaphoresis, palpitations, or shortness of breath. Blood pressure elevated upon arrival. Was previously on antiHTN therapy, but has been our for the last month or so. Moved here from [place] in early June and has been mostly staying in her car. PAST MEDICAL HISTORY Past Medical History MS Cardiovascular: HTN, hyperipidemia Pulmonary: COPD, Other (CHARLEE) CENTRAL NERVOUS SYSTEM: Seizure Heme/Onc: Cancer (colorectal ) Psych: Anxiety, Depression Endocrine: Diabetes, Hypothyroidism PAST SURGICAL HISTORY Past Surgical History: Colon Resection (with ostomy ) FAMILY HISTORY Family History: Cancer SOCIAL HISTORY Smoke: 1 pack per day ALCOHOL: none Drugs: Crystal meth (UDS +, denies use ) Lives: Homeless CURRENT MEDICATIONS Current Medications Current Medications Lactated Ringer's 1,000 ml @ 1,000 mls/hr Q1H IV Last administered on 07/09/19at 19:55; Start 07/09/19 at 19:11; Stop 07/09/19 at 20:10; Status DC Ondansetron HCl (Zofran) 8 mg 1X ONCE IVP Last administered on 07/09/19 19:54; Start 07/09/19 at 19:15; Stop 07/09/19 at 19:17; Status DC Famotidine (Pepcid Vial) 20 mg 1X ONCE IVP Last administered on 07/09/19at 19:55; Start 07/09/19 at 19:15; Stop 07/09/19 at 19:17; Status DC Ketorolac Tromethamine (Toradol 30mg Vial) 30 mg 1X ONCE IVP Last administered on 07/09/19at 23:19; Start 07/09/19 at 19:15; Stop 07/09/19 at 19:17; Status DC Lorazepam (Ativan Inj) 2 mg 1X ONCE IVP Last administered on 07/09/19at 19:55; Start 07/09/19 at 19:45; Stop 07/09/19 at 19:46; Status DC Midazolam HCl (Versed) 2 mg 1X PRN PRN IV CT head, chest and abdomen; Start 07/09/19 at 19:45 Iohexol (Omnipaque 350 Mg/ml) 100 ml 1X ONCE IV Last administered on 07/09/19at 22:00; Start 07/09/19 at 20:00; Stop 07/09/19 at 20:01; Status DC Info (Do NOT chart on this entry -- for MONITORING) 1 each PRN DAILY PRN MC SEE COMMENTS; Start 07/09/19 at 20:00; Stop 07/11/19 at 19:59 Iohexol (Omnipaque 240 Mg/ml) 30 ml 1X ONCE PO Last administered on 07/09/19at 22:00; Start 07/09/19 at 20:00; Stop 07/09/19 at 20:01; Status DC Midazolam HCl (Versed) 2 mg 1X PRN PRN IV CT; Start 07/09/19 at 20:15; Status UNV Fentanyl Citrate (Fentanyl 2ml Vial) 50 mcg 1X PRN PRN IVP fir CT head Last administered on 07/10/19at 06:21; Start 07/09/19 at 20:15 Fentanyl Citrate (Fentanyl 2ml Vial) 100 mcg STK-MED ONCE .ROUTE ; Start 07/09/19 at 20:08; Stop 07/09/19 at 20:08; Status DC Clonidine HCl (Catapres) 0.2 mg 1X ONCE PO ; Start 07/09/19 at 22:00; Stop 07/09/19 at 22:01; Status DC Clonidine HCl (Catapres Tts-2) 1 patch 1X ONCE TD ; Start 07/09/19 at 22:00; Stop 07/09/19 at 22:01; Status DC Ondansetron HCl (Zofran) 4 mg PRN Q4HRS PRN IV NAUSEA/VOMITING; Start 07/09/19 at 23:15; Stop 07/10/19 at 23:14 Acetaminophen (Tylenol) 650 mg PRN Q4HRS PRN PO FEVER; Start 07/09/19 at 23:15; Stop 07/10/19 at 23:14 Albuterol/ Ipratropium (Duoneb) 3 ml RTQID NEB Last administered on 07/10/19at 04:53; Start 07/10/19 at 08:00; Stop 07/11/19 at 07:59 Aspirin (Children'S Aspirin) 81 mg DAILY PO ; Start 07/10/19 at 09:00 Clonidine HCl (Catapres Tts-2) 1 patch 1X ONCE TD ; Start 07/12/19 at 22:00; Stop 07/12/19 at 22:01 Lactated Ringer's 1,000 ml @ 160 mls/hr Q6H15M IV Last administered on 07/09/19at 23:22; Start 07/09/19 at 23:15 Lorazepam (Ativan Inj) 2 mg 1X PRN PRN IVP seizure; Start 07/09/19 at 23:15 Lorazepam (Ativan Inj) 2 mg TID IVP ; Start 07/10/19 at 09:00 Levetiracetam (Keppra) 1,000 mg BID PO Last administered on 07/10/19at 00:00; Start 07/10/19 at 00:00 Famotidine (Pepcid) 20 mg BID PO Last administered on 07/10/19at 00:00; Start 07/10/19 at 00:00 Influenza Virus Vaccine Quadrival (Afluria Quad 2019-20 (3yr Up) Syringe) 0.5 ml ONCE ONCE VAX IM ; Start 07/10/19 at 09:00; Stop 07/10/19 at 09:01 Albuterol/ Ipratropium (Duoneb) 3 ml STK-MED ONCE .ROUTE ; Start 07/10/19 at 04:47; Stop 07/10/19 at 04:47; Status DC Active Scripts Active Reported Hydrocodone-Apap 10-325 (Hydrocodone Bit/Acetaminophen) 1 Each Tablet 1 Tab PO PRN Q8HRS PRN Vimpat (Lacosamide) 200 Mg Tablet 200 Mg PO BID Singulair Tablet (Montelukast Sodium) 10 Mg Tablet 10 Mg PO HS Vytorin 10-40 Mg Tablet (Ezetimibe/Simvastatin) 1 Each Tablet 1 Tab PO QHS 30 Days Diazepam 5 Mg Tablet 5 Mg PO TID Levothyroxine Sodium 150 Mcg Tablet 1 Tab PO DAILY Levetiracetam 1,000 Mg Tablet 1 Tab PO BID 30 Days Naproxen 375 Mg Tablet 1 Tab PO TID 30 Days with food Gabapentin 600 Mg Tablet 600 Mg PO BID Metoprolol Succinate ( Xl ) (Metoprolol Succinate) 50 Mg Tab.er.24h 1 Tab PO DAILY Fluoxetine Hcl 20 Mg Capsule 1 Cap PO DAILY Cymbalta (Duloxetine Hcl) 60 Mg Capsule. 1 Cap PO BID ALLERGIES Allergies: Coded Allergies: No Known Drug Allergies (Unverified , 06/28/19) ROS Review of Systems 14 point ROS conducted with pertinent positives noted above in HPI PHYSICAL EXAM General: Alert, Oriented X3, Cooperative, No acute distress HEENT: Atraumatic, Mucous membr. moist/pink Lungs: Clear to auscultation, Other (left chest tenderness upon palpitation) Heart: Regular rate, Normal S1, Normal S2 Abdomen: Other (diffuse tenderness ) Extremities: No edema, Normal pulses Skin: No breakdown Neuro: Normal speech, Sensation intact Psych/Mental Status: Mental status NL, Mood NL MUSCULOSKELETAL: Osteoarthritic changes both hands VITALS Vital Signs Vital Signs Date Time Temp Pulse Resp B/P (MAP) Pulse Ox O2 Delivery O2 Flow Rate FiO2 07/10/19 06:21 18 93 Room Air 07/10/19 05:50 97.4 78 119/81 (94) LABS LABS Laboratory Tests Test 07/09/19 19:30 07/09/19 19:32 07/09/19 19:35 07/09/19 19:43 White Blood Count 9.7 x10^3/uL (4.0-11.0) Red Blood Count 4.85 x10^6/uL (3.50-5.40) Hemoglobin 14.8 g/dL (12.0-15.5) Hematocrit 44.5 % (36.0-47.0) Mean Corpuscular Volume 92 fL (79-100) Mean Corpuscular Hemoglobin 31 pg (25-35) Mean Corpuscular Hemoglobin Concent 33 g/dL (31-37) Red Cell Distribution Width 13.9 % (11.5-14.5) Platelet Count 309 x10^3/uL (140-400) Neutrophils (%) (Auto) 63 % (31-73) Lymphocytes (%) (Auto) 25 % (24-48) Monocytes (%) (Auto) 7 % (0-9) Eosinophils (%) (Auto) 4 % (0-3) Basophils (%) (Auto) 1 % (0-3) Neutrophils # (Auto) 6.1 x10^3uL (1.8-7.7) Lymphocytes # (Auto) 2.4 x10^3/uL (1.0-4.8) Monocytes # (Auto) 0.7 x10^3/uL (0.0-1.1) Eosinophils # (Auto) 0.4 x10^3/uL (0.0-0.7) Basophils # (Auto) 0.1 x10^3/uL (0.0-0.2) Prothrombin Time 9.5 SEC (9.4-11.4) Prothromb Time International Ratio 0.9 (0.9-1.1) Activated Partial Thromboplast Time 26 SEC (23-33) Maternal Serum HCG Beta Subunit 2 mIU/mL (0-6) Sodium Level 142 mmol/L (136-145) Potassium Level 3.5 mmol/L (3.5-5.1) Chloride Level 102 mmol/L (98-107) Carbon Dioxide Level 24 mmol/L (21-32) Anion Gap 16 (6-14) Blood Urea Nitrogen 5 mg/dL (7-20) Creatinine 0.8 mg/dL (0.6-1.0) Estimated GFR (Cockcroft-Gault) 74.5 Glucose Level 130 mg/dL (70-99) Calcium Level 9.5 mg/dL (8.5-10.1) Total Bilirubin 0.3 mg/dL (0.2-1.0) Direct Bilirubin 0.1 mg/dL (0.0-0.2) Aspartate Amino Transf (AST/SGOT) 26 U/L (15-37) Alanine Aminotransferase (ALT/SGPT) 28 U/L (14-59) Alkaline Phosphatase 133 U/L (46-116) Creatine Kinase 302 U/L (26-192) Troponin I Quantitative < 0.017 ng/mL (0-0.055) Total Protein 7.7 g/dL (6.4-8.2) Albumin 4.1 g/dL (3.4-5.0) Amylase Level 23 U/L (25-115) Lipase 104 U/L (73-393) Ethyl Alcohol Level < 10 mg/dL (0-10) Urine Collection Type U cath Urine Color Straw Urine Clarity Clear Urine pH 6.5 Urine Specific Gifford <=1.005 Urine Protein Neg (NEG-TRACE) Urine Glucose (UA) Neg mg/dL (NEG) Urine Ketones (Stick) Neg mg/dL (NEG) Urine Blood Trace (NEG) Urine Nitrite Neg (NEG) Urine Bilirubin Neg (NEG) Urine Urobilinogen Dipstick 0.2 mg/dL (0.2 mg/dL) Urine Leukocyte Esterase Neg (NEG) Urine RBC Rare /HPF (0-2) Urine WBC Occ /HPF (0-4) Urine Squamous Epithelial Cells Occ /LPF Urine Bacteria 0 /HPF (0-FEW) Urine Opiates Screen Neg (NEG) Urine Methadone Screen Neg (NEG) Urine Barbiturates Neg (NEG) Urine Phencyclidine Screen Neg (NEG) Urine Amphetamine/Methamphetamine Pos (NEG) Urine Benzodiazepines Screen Pos (NEG) Urine Cocaine Screen Neg (NEG) Urine Cannabinoids Screen Neg (NEG) Urine Ethyl Alcohol Neg (NEG) Blood Gas pH 7.53 (7.35-7.45) Blood Gas PCO2 27 mmHg (35-45) Blood Gas PO2 170 mmHg (80-100) Blood Gas HCO3 23 mmol/L (22-26) Arterial Bld O2 Saturation (Calc) 100 % (92-99) FiO2 21 % Influenza Type A (Rapid) Negative (NEGATIVE) Influenza Type B (Rapid) Negative (NEGATIVE) Test 07/10/19 03:24 07/10/19 06:07 Glucose (Fingerstick) 98 mg/dL (70-99) White Blood Count 6.6 x10^3/uL (4.0-11.0) Red Blood Count 4.43 x10^6/uL (3.50-5.40) Hemoglobin 13.6 g/dL (12.0-15.5) Hematocrit 40.4 % (36.0-47.0) Mean Corpuscular Volume 91 fL (79-100) Mean Corpuscular Hemoglobin 31 pg (25-35) Mean Corpuscular Hemoglobin Concent 34 g/dL (31-37) Red Cell Distribution Width 13.8 % (11.5-14.5) Platelet Count 263 x10^3/uL (140-400) Neutrophils (%) (Auto) 57 % (31-73) Lymphocytes (%) (Auto) 27 % (24-48) Monocytes (%) (Auto) 10 % (0-9) Eosinophils (%) (Auto) 5 % (0-3) Basophils (%) (Auto) 1 % (0-3) Neutrophils # (Auto) 3.8 x10^3uL (1.8-7.7) Lymphocytes # (Auto) 1.8 x10^3/uL (1.0-4.8) Monocytes # (Auto) 0.6 x10^3/uL (0.0-1.1) Eosinophils # (Auto) 0.3 x10^3/uL (0.0-0.7) Basophils # (Auto) 0.1 x10^3/uL (0.0-0.2) Sodium Level 143 mmol/L (136-145) Potassium Level 3.6 mmol/L (3.5-5.1) Chloride Level 107 mmol/L (98-107) Carbon Dioxide Level 30 mmol/L (21-32) Anion Gap 6 (6-14) Blood Urea Nitrogen 5 mg/dL (7-20) Creatinine 0.7 mg/dL (0.6-1.0) Estimated GFR (Cockcroft-Gault) 86.9 Glucose Level 104 mg/dL (70-99) Calcium Level 8.5 mg/dL (8.5-10.1) ASSESSMENT/PLAN Assessment/Plan 1. Abdominal pain, recurrent hernia. CT abdomen without acute findings 2. H/o of colorectal CA with colectomy. 3. Left-sided chest pain, atypical. Most probably MSK in origin. Reports recent fall on that left side. Has had pain since. Area is very tender upon palpitation 4. Accelerated HTN; has been out of antiHTN therapy for last month or so 5. Diabetes, II; as per PCP 6. Drug abuse; + methamphetamines 7. Depression, SI Recommendations Trend troponin Check lipids Add ASA, statin therapy Add ACEi for BP control No BB with SI. REID THOMASON APRN Jul 10, 2019 07:46
[2019-07-10] MEDS: levETIRAcetam 500 MG TABLET PO SCH ×3 (08:43→20:44)
[2019-07-10] MEDS: IV RINGERS SOLUTION,LACTATED 1,000 ML IV SCH ×3 (08:43→18:00)
[2019-07-10] MEDS: FAMOTIDINE 20 MG TABLET PO SCH ×3 (08:43→20:44)
[2019-07-10] MEDS ORDERED: ASPIRIN 81 MG TAB.CHEW PO SCH (09:00)
[2019-07-10] MEDS ORDERED: FLU VAX QS 2019-20 (36MOS+)/PF 0.5 ML SYRINGE. VAX IM ONE (09:00)
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
--- NOTE | 2019-07-10 10:56 | NUR ---
NURSING NOTE [place] REMOVED D/T NO NEED. HAYDEN PALOMARES.
--- NOTE | 2019-07-10 11:21 | NUR ---
NURSING NOTE MEDICATION FOUND IN PT ROOM Drug: Acetaminophen and Hydrocodone Bitartrate Strength: 325 mg / 10 mg WHITE OVAL SHAPED PILL FOUND IN PT ROOM ON FLOOR, IMPRINTED WITH N 358 ON ONE SIDE AND 10 ON THE BACK. ACCORDING TO PILL IDENTIFIER, ACETAMINOPHEN AND HYDROCODONE 325/10. PT HAS NOT BEEN GIVEN THIS MEDICATION FROM US BUT DOES HAVE THIS LISTED A HOME MEDICATION. PT HOME MEDICATIONS ARE IN A BACKPACK AND HAVE BEEN PLACED LOCKED IN THE MED ROOM. WILL CONTINUE TO MONITOR. HAYDEN PALOMARES.
--- NOTE | 2019-07-10 12:15 | HP ---
ADMIT DATE: 07/09/2019 HISTORY OF PRESENT ILLNESS: The patient is a 54-year-old female patient, who was brought to the Emergency Room with complaint of abdominal pain, stating that her stomach hurts, she is sick and her chest hurts. She apparently is moving to [facility] from [place], [place]. She apparently is known to have colon cancer, for which she underwent partial colectomy and chemotherapy 4.5 years ago. She had multiple polyps prior to the diagnosis and biopsy resulting in colon resection. She is known to have COPD, elevated cholesterol, diabetes, hypothyroidism, seizure disorder. She also has gout and scoliosis, cerebellar ataxia. She was complaining of pain in her abdomen, thinking that she has another hernia. She also complained of chest pain, although she is not very specific and very poor historian, and was admitted to be evaluated, and has had cardiac enzymes as well as the cerebellar ataxia and also multiple sclerosis according to her. Therefore, the patient was admitted to do 3 sets of cardiac enzymes and consult remote sensing analyst. We will also consult Dr. Zayas. She has also suicidal ideation; she stated that she has a plan to shoot herself with a gun. Initial evaluation showed that her lab work was essentially unremarkable except slightly elevated alkaline phosphatase. Her urinalysis was unremarkable. Her toxic screen was positive for amphetamine, methamphetamine and benzodiazepine. She underwent extensive imaging including head and cervical spine as well as chest, abdomen and pelvic CT scan, and was admitted for further evaluation and treatment. PAST MEDICAL HISTORY: Significant for hypertension, type 2 diabetes, hyperlipidemia, cerebrovascular accident, a solitary functioning kidney, hypothyroidism, COPD, gout and osteoarthritis. She did have also colon cancer 3 years ago and lymphoma, treated with chemotherapy, and she also complained of diplopia. PAST SURGICAL HISTORY: Significant for multiple colonoscopies and polypectomies. She underwent partial colectomy and colostomy, appendectomy, total abdominal hysterectomy, bilateral salpingo-oophorectomy. She had tonsillectomy, cholecystectomy, left knee arthroscopic surgery, right rotator cuff repair. She also underwent esophagogastroduodenoscopy and colonoscopy before. ALLERGIES: She is allergic to MORPHINE. MEDICATIONS: She is currently on the following medications: She is on Vytorin 1 tablet at bedtime, metoprolol succinate 50 mg once a day, naproxen 375 mg 3 times a day, hydrocodone/APAP 10/325 one tablet every 8 hours, gabapentin 600 mg twice a day, lacosamide 200 mg twice a day, levetiracetam 1000 mg twice a day, duloxetine 60 mg twice a day, fluoxetine 20 mg once a day, diazepam 5 mg 3 times a day, Singulair 10 mg at bedtime and levothyroxine sodium 150 mcg once a day. FAMILY HISTORY: Significant for the fact that she has only 1 sister who is healthy. Father at the age of 85 because of liver cancer and mother at the age of 64 because of lymphoma. SOCIAL HISTORY: Her common law recently. She has 2 sons and 1 daughter. She smokes a pack a day, does not drink alcohol or use any recreational drugs. She is currently on disability. REVIEW OF SYSTEMS: As per history of present illness. PHYSICAL EXAMINATION: GENERAL: When I examined her on arrival, she looked well and was clearly in no apparent respiratory distress. No pallor, jaundice, cyanosis or thyromegaly. No jugular venous distention. No limb edema. VITAL SIGNS: Her heart rate was 118, blood pressure was 169/92, temperature was 98.4, respiratory rate was 18 and oxygen saturation was 99% on room air. HEAD, EYES, EARS, NOSE AND THROAT: Showed normocephalic, atraumatic. NECK: Supple. HEART: Showed normal first and second heart sounds. No gallop, rub or murmur. CHEST: Clear to auscultation. No crepitation or rhonchi. ABDOMEN: Distended, soft with a colostomy bag in the left lower quadrant. There is no guarding or rigidity. No organomegaly. All hernial orifices intact. Bowel sounds normal. NEUROLOGIC: She is awake, alert, responding appropriately. All cranial nerves intact. EXTREMITIES: She moves all extremities without difficulty. LABORATORY DATA: Her lab work on arrival showed a white cell count of 9700, hemoglobin 14.8, hematocrit 44.5, MCV 92 and platelet count ____. Her blood gases showed a pH of 7.53, pCO2 of 27, pO2 of 170, bicarbonate 23 and oxygen saturation was 100% on FiO2 of 21%. Her prothrombin time, INR and aPTT were all normal. Her chemistry showed serum sodium 142, potassium 3.5, chloride 102, bicarbonate 24, anion gap of 16, BUN 5, creatinine 0.8. Estimated GFR was 74 mL per minute. Glucose 130, calcium was 9.5. Total bilirubin, AST, ALT were normal. Alkaline phosphatase was slightly elevated at 133. CK was 102. Total protein was 7.7, albumin was 4.1. First set of cardiac enzymes showed troponin to be less than 0.017 and serum lipase was 104. Her urinalysis was essentially unremarkable and toxic screen was positive for amphetamine, methamphetamine as well as benzodiazepine. IMAGING: She has had multiple imaging modalities. She had a CT scan of the head and cervical spine, which showed that there are no acute abnormalities; in particular, no apparent intracranial hemorrhage or abnormal extraaxial fluid collection. The cervical spine showed degenerative changes, but no apparent acute abnormality. She has had a CT scan of the chest, abdomen and pelvis, which basically showed no evidence of pulmonary thromboembolic disease, no evidence of major traumatic injury to the chest, abdomen or pelvis. ASSESSMENT AND PLAN: The patient was admitted to do 2 sets of cardiac enzyme, would consult the Cardiology team, the neurologist, as well as psychiatrist. RACHAEL BENDER MD DR: SHERRILL/maurilio JOB#: [id number] / [id number]
[2019-07-10 13:46] LABS: HDLC 31 mg/dL (40-60); TRIGLYCERIDES 669 mg/dL (0-150); VLDLC 133 mg/dL (0-40)
--- NOTE | 2019-07-10 14:00 | NUR ---
NURSING NOTE CONSULTS CONSULT FAXED UPSTAIRS FOR DR ISLAS. THIS NURSE DID NOT FIND A PAPER FROM [employer] SO UNCLEAR IF IT WAS DONE. PAGED DR PARKER. CALL BACK PENDING. HAYDEN PALOMARES.
[2019-07-10] MEDS: HYDROcodone/APAP 5/325MG 1 TAB TABLET PO PRN ×2 (15:15→20:44)
--- NOTE | 2019-07-10 16:25 | NUR ---
NURSING NOTE PT SISTER BROUGHT IN PHONE IT HELP DESK ANALYST FOR PT YESTERDAY, PT STATES THEY HAD IT PLUGGED INTO THE WALL. PT IT HELP DESK ANALYST IS MISSING AND STATES THAT HER SON ALWAYS STEALS THEM. IT IS A [employer] PHONE. PT SISTER STATES SHE WILL BRING HER ANOTHER ONE. HAYDEN PALOMARES. Addendum: 07/10/19 at 1630 by MARIELLE NIETO RN RN PHONE CHARGES WERE FOUND IN PT RED BAG THAT IS LOCKED IN MED ROOM. HAYDEN PALOMARES.
--- NOTE | 2019-07-10 17:51 | RAD ---
EXAM: CT Thoracic Spine without IV contrast INDICATION: Back pain TECHNIQUE: Multi-detector row CT images were obtained through the thoracic spine without the use of IV contrast. Post-processing sagittal and coronal reconstructed images were obtained for interpretation. Due to a technical glitch with the scanner, the raw data was corrupted so multiplanar reformats were reconstructed from the recovered axial data. All CT scans performed at this facility utilize dose optimization techniques as appropriate to the exam, including the following: Automated exposure control and adjustment of the mA and/or KV according to patient size (this includes techniques or standardized protocols for targeted exams where dose is indication/reason for exam). COMPARISON: CT chest abdomen pelvis with IV contrast of June 20, 2019. FINDINGS: ALIGNMENT: Alignment is within normal limits. OSSEOUS: No evidence of fracture or bone destruction. There are predominantly right-sided osteophytes present near the costotransverse junction bulky osteophytes on the right at T8-T9 and T9-T10.. DISC SPACES: Unremarkable. FACET JOINTS: Unremarkable. SPINAL CANAL: Unremarkable. NEUROFORAMINA: Unremarkable. SOFT TISSUES: Unremarkable. IMPRESSION: No acute finding thoracic spine with mild multilevel degenerative changes noted. EXAM: CT Lumbar Spine without IV contrast INDICATION: back pain TECHNIQUE: Multi-detector row CT images were obtained through the lumbar spine without the use of IV contrast. Post-processing sagittal and coronal reconstructed images were obtained for interpretation. All CT scans performed at this facility utilize dose optimization techniques as appropriate to the exam, including the following: Automated exposure control and adjustment of the mA and/or KV according to patient size (this includes techniques or standardized protocols for targeted exams where dose is indication/reason for exam). COMPARISON: None FINDINGS: The lowest fully formed disc is referred to as the L5-S1 level. ALIGNMENT: Grade 1 retrolisthesis of L3 on L4 and minimal anterolisthesis of L4-L5 is present. OSSEOUS: No evidence of fracture or bone destruction. The spinous processes of L2 and L3, L3 and L4 and L4 and L5 appear to show mild changes of pseudoarthrosis. DISC SPACES: Mild multilevel disc loss of height is present. FACET JOINTS: Facet hypertrophic changes present most conspicuous bilaterally at the L4-L5 and L5-S1 levels. SPINAL CANAL: Unremarkable. NEUROFORAMINA: Mild to moderate bilateral foraminal narrowing is diffusely present at L2-L3 through L5-S1 due to varying degrees of facet hypertrophy and disc bulging.. There is lobulation to the renal contour, more on the right, suggesting chronic renal scarring. Calcification in the inferior pole right kidney also noted. No hydronephrosis seen. SOFT TISSUES: Extensive arterial atherosclerosis in the abdominal aorta, and evidence of hepatomegaly, prior cholecystectomy. IMPRESSION: Multilevel lumbar spinal degenerative spondylosis with varying degrees of foraminal stenosis as described. Electronically signed by: Armand Toledo MD (07/10/2019 5:48 PM) [facility]
[2019-07-10] MEDS ORDERED: ATORVASTATIN CALCIUM 20 MG TABLET PO SCH (21:00)
--- NOTE | 2019-07-10 21:32 | PDOC ---
Exam Note: Jonnathan Note: Please also refer to the separate dictated note~for this date of service dictated separately.~Patient seen individually. Discussed the patient with Nursing staff reviewed the chart.~Reviewed interim history and current functioning. Reviewed vital signs,~Labs/ Radiology~and current medications noted below. Continue current treatment with the changes noted in the dictated addendum note Assessment: Vital Signs/I&O: Vital Signs Date Time Temp Pulse Resp B/P (MAP) Pulse Ox O2 Delivery O2 Flow Rate FiO2 07/10/19 20:44 18 Room Air 07/10/19 19:17 98.2 91 146/87 (106) 99 I & O 07/09/19 07/09/19 07/10/19 15:00 23:00 07:00 Intake Total 1150 ml Output Total 450 ml Balance 700 ml Labs: Laboratory Tests Test 07/10/19 03:24 07/10/19 06:07 Glucose (Fingerstick) 98 mg/dL (70-99) White Blood Count 6.6 x10^3/uL (4.0-11.0) Red Blood Count 4.43 x10^6/uL (3.50-5.40) Hemoglobin 13.6 g/dL (12.0-15.5) Hematocrit 40.4 % (36.0-47.0) Mean Corpuscular Volume 91 fL (79-100) Mean Corpuscular Hemoglobin 31 pg (25-35) Mean Corpuscular Hemoglobin Concent 34 g/dL (31-37) Red Cell Distribution Width 13.8 % (11.5-14.5) Platelet Count 263 x10^3/uL (140-400) Neutrophils (%) (Auto) 57 % (31-73) Lymphocytes (%) (Auto) 27 % (24-48) Monocytes (%) (Auto) 10 % (0-9) H Eosinophils (%) (Auto) 5 % (0-3) H Basophils (%) (Auto) 1 % (0-3) Neutrophils # (Auto) 3.8 x10^3uL (1.8-7.7) Lymphocytes # (Auto) 1.8 x10^3/uL (1.0-4.8) Monocytes # (Auto) 0.6 x10^3/uL (0.0-1.1) Eosinophils # (Auto) 0.3 x10^3/uL (0.0-0.7) Basophils # (Auto) 0.1 x10^3/uL (0.0-0.2) Sodium Level 143 mmol/L (136-145) Potassium Level 3.6 mmol/L (3.5-5.1) Chloride Level 107 mmol/L (98-107) Carbon Dioxide Level 30 mmol/L (21-32) Anion Gap 6 (6-14) Blood Urea Nitrogen 5 mg/dL (7-20) L Creatinine 0.7 mg/dL (0.6-1.0) Estimated GFR (Cockcroft-Gault) 86.9 Glucose Level 104 mg/dL (70-99) H Calcium Level 8.5 mg/dL (8.5-10.1) Troponin I Quantitative < 0.017 ng/mL (0-0.055) Current Medications: Meds: Current Medications Medications (Trade) Dose Ordered Sig/Tay Route PRN Reason Start Time Stop Time Status Last Admin Dose Admin Albuterol/ Ipratropium (Duoneb) 3 ml RTQID NEB 07/10/19 08:00 07/11/19 07:59 07/10/19 16:40 Aspirin (Children'S Aspirin) 81 mg DAILY PO 07/10/19 09:00 07/10/19 08:43 Lactated Ringer's 1,000 ml @ 160 mls/hr Q6H15M IV 07/09/19 23:15 07/10/19 08:43 Lorazepam (Ativan Inj) 2 mg TID IVP 07/10/19 09:00 07/10/19 20:44 Levetiracetam (Keppra) 1,000 mg BID PO 07/10/19 00:00 07/10/19 20:44 Famotidine (Pepcid) 20 mg BID PO 07/10/19 00:00 07/10/19 20:44 Influenza Virus Vaccine Quadrival (Afluria Quad 2019- (3yr Up) Syringe) 0.5 ml ONCE ONCE VAX IM 07/10/19 09:00 07/10/19 09:01 DC 07/10/19 09:47 Acetaminophen/ Hydrocodone Bitart (Lortab 5/325) 1 tab PRN Q4HRS PRN PO PAIN 07/10/19 15:00 07/10/19 20:44 Atorvastatin Calcium (Lipitor) 40 mg QHS PO 07/10/19 21:00 07/10/19 20:43 I have reviewed the current psychotropics carefully including drug interactions. Risk benefit ratio favors no change other than as noted in my dictated progress note. Diagnosis: Problems: (1) Pain in the abdomen YANIRA ISLAS MD Jul 10, 2019 21:32
--- NOTE | 2019-07-11 00:44 | PN ---
DATE: 07/10/2019 SUBJECTIVE: The patient is a 54-year-old female patient who came yesterday with multiple complaints including chest pain, abdominal pain. She also complained that she has suicidal ideation, planning to shoot herself with a gun that she owns. She apparently moved here to be with her sister and her son; however, things are not going the way she expected and that is what triggered her. She also lost her common law recently. She has had first set of cardiac enzymes negative and therefore, she was admitted and had 2 more sets of cardiac enzyme and we consulted the Cardiology team as well as the neurologist as well as the psychiatrist given her suicidal ideation. I saw her today, she was resting slightly propped up in bed, in no apparent respiratory distress, slightly pale, not jaundiced, cyanosed or thyromegaly. No jugular venous distention. No limb edema. VITAL SIGNS: Her heart rate was 78, blood pressure was 119/81, temperature was 97.4, respiratory rate was 16, and oxygen saturation was 93%. HEAD, EYES, EARS, NOSE AND THROAT: Normocephalic, atraumatic. NECK: Supple. HEART: Showed normal first and second heart sounds. No gallop or murmur. CHEST: Clear to auscultation. No crepitation or rhonchi. ABDOMEN: Distended, soft with a colostomy bag in the left lower quadrant. There is no guarding or rigidity. No organomegaly. All hernial orifices intact. Bowel sounds normal. NEUROLOGIC: She was grossly intact. LABORATORY DATA: Her lab work this morning showed her white cell count is 6600, hemoglobin 13.6, hematocrit 40, MCV 91, and platelet count 263,000 with normal manual differential. Her chemistry showed a serum sodium 143, potassium 3.6, chloride 107, bicarbonate 30, anion gap of 6, BUN 5, creatinine 0.7. Estimated GFR was 87 mL per minute. Her glucose 104, calcium was 8.5. In summary, this is a 54-year-old female patient who has moved recently from [place] to be with her family here. Apparently things are not going the way she wanted. She lost also her common law recently and was admitted with suicidal ideation, planning to shoot herself with a gun. She also complained of multiple complaints that are very nonspecific, chest pain, abdominal pain. She has so far 2 sets of cardiac enzymes that ruled out myocardial infarction. Her CT scan of the abdomen and pelvis showed no evidence of any bowel obstruction or any hernias and so far, all her lab works are well within normal range. PLAN: She also has ataxia and a questionable multiple sclerosis, so I have consulted Dr. Zayas and also Dr. Lombardo to assist with her management. RACHAEL BENDER MD DR: SHERRILL/maurilio JOB#: [id number] / [id number]
--- NOTE | 2019-07-11 02:20 | NUR ---
PT complained of not being able to smoke in room. Then, PT explained that she was on Q15min observation from SI statement on admission. Acknowledged that PT was no longer SI, but that precautions would be in place until doctor DC'd order. PT complaining of not being able to watch television. TV was turned on but no remote allowed due to cord. PT stated she wanted to leave. This RN tried to convince PT to stay through the night but PT demanding to leave. Convinced PT to leave IV in place and stay in hospital gown until her transportation arrived. PT contacted her sister who arrived about an hour later to pick her up. PT's IV removed and PT assisted into her clothes. PT returned her belongings. PT stated she had a krys ring, however, no jewelry noted at time of admission. PT escorted out with nursing canvas goods supervisor and security to awaiting transportation. PT safely entered the private transportation.
[2019-07-11] MEDS ORDERED: LISINOPRIL 5 MG TABLET. PO SCH (09:00)
--- NOTE | 2019-07-11 22:21 | CONS ---
DATE OF CONSULTATION: 07/10/2019 PSYCHIATRIC CONSULTATION NOTE This late entry date 07/10/2019 covers elements not covered in my initial note. IDENTIFYING DATA: The patient is a 54-year-old female seen in room 122 at [facility], for a psychiatric consult requested by Dr. Vo on account of the patient's worsening symptoms of depression, suicidal ideation, recent loss of her . CHIEF COMPLAINT: "I recently moved to this area to be closer to my sister. I was living in [place]. My fiance . They are arranging for low income housing for me. I would never try to hurt myself, but I said that because I was overwhelmed. I have been disabled due to MS and days when I am tired I have to use a wheelchair. 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 She has a history of colon cancer and underwent partial colectomy, chemotherapy 4-1/2 years ago. She also has COPD, elevated cholesterol, hypothyroidism, diabetes mellitus, seizure disorder and states she has multiple sclerosis. She also has a diagnosis of gout and scoliosis, cerebellar ataxia. She had made the suicidal statements with a plan to use a gun, but thoroughly denies any current thoughts of wanting to hurt herself. Her toxic screen was positive for amphetamine, methamphetamine, benzodiazepines. PAST PSYCHIATRIC HISTORY: Positive for depression, anxiety. PAST MEDICAL HISTORY: In addition to above, positive for hypertension, type 2 diabetes mellitus, status post CVA, hyperlipidemia, solitary functioning kidney, hypothyroidism, COPD, gout, osteoarthritis, history of CA colon, Lymphoma treated on chemotherapy. PAST SURGICAL HISTORY: Multiple colonoscopies, polypectomies, history f partial colectomy, colostomy, appendectomy, total abdominal hysterectomy with bilateral salpingo-oophorectomy. History of tonsillectomy, cholecystectomy, left knee arthroscopic surgery, right rotator cuff repair; history of EGD and colonoscopy. ALLERGIES: MORPHINE. CURRENT PSYCHOTROPICS: Prozac 20 mg a day, Valium 5 mg 3 times a day. FAMILY HISTORY: Noncontributory. Her sister lives in the area. SOCIAL HISTORY: Her common-law recently. She has 2 sons, 1 daughter. Smokes a packet of cigarettes a day. No alcohol usage. She is currently on disability. MENTAL STATUS EXAMINATION: The patient was seen individually evening of 07/10/2019. She is oriented to herself and situation. Speech has some latency, coherent. Abstraction fair, computation impaired, language function intact, attention span short. Mood is depressed, anxious. Affect is mood congruent. Attention span short. No active suicidal or homicidal ideation. She was quite verbal, open, forthcoming. IMPRESSION: Major depressive disorder versus adjustment disorder with depressed mood and anxiety, mild cognitive impairment. Rest as above. RECOMMENDATION: From a psychiatric standpoint, the patient probably should start outpatient psychotherapy at the [facility] post-discharge. She may also benefit from increasing the Prozac to 30 mg a day and later 40 mg a day and gradually tapering the Valium at some point. She is agreeable to going to the outpatient treatment at the [facility] post-discharge. Since she had voiced suicidal ideation, perhaps the [facility] could screen her as well for possible inpatient hospitalization. Dr. Vo, thank you for the opportunity to participate in your patient's care. We will follow with you. YANIRA ISLAS MD DR: CHANDA/maurilio JOB#: [id number] / [id number]
[2019-07-12] MEDS ORDERED: cloNIDine TTS-2 1 PATCH PATCH TD ONE (22:00)
== END 2019-07-11 00:15 | disposition left against medical advice (07) | DRG 59 ==
LOC: ER 19:03 → 1 SOUTH 21:00
PROVIDERS: ADMIT Internal Medicine; ATTEND Internal Medicine
DX: G35 Multiple sclerosis (principal); G11.9 Hereditary ataxia, unspecified; E03.9 Hypothyroidism, unspecified; E11.9 Type 2 diabetes mellitus without complications; E78.00 Pure hypercholesterolemia, unspecified; E78.5 Hyperlipidemia, unspecified; F17.210 Nicotine dependence, cigarettes, uncomplicated; F31.9 Bipolar disorder, unspecified; G31.84 Mild cognitive impairment of uncertain or unknown etiology; G40.909 Epilepsy, unspecified, not intractable, without status epilepticus; G89.29 Other chronic pain; I10 Essential (primary) hypertension; J44.9 Chronic obstructive pulmonary disease, unspecified; M10.9 Gout, unspecified; M25.78 Osteophyte, vertebrae; M41.9 Scoliosis, unspecified; M79.7 Fibromyalgia; Z59.0 Homelessness; Z79.899 Other long term (current) drug therapy; Z80.0 Family history of malignant neoplasm of digestive organs; Z80.7 Family history of other malignant neoplasms of lymphoid, hematopoietic and related tissues; Z85.048 Personal history of other malignant neoplasm of rectum, rectosigmoid junction, and anus; Z85.72 Personal history of non-Hodgkin lymphomas; Z86.73 Personal history of transient ischemic attack (TIA), and cerebral infarction without residual deficits; Z90.710 Acquired absence of both cervix and uterus; Z91.19 Patient's noncompliance with other medical treatment and regimen; Z92.21 Personal history of antineoplastic chemotherapy; Z93.3 Colostomy status; F41.9 Anxiety disorder, unspecified; M19.90 Unspecified osteoarthritis, unspecified site; R07.89 Other chest pain
CPT/HCPCS: 36415; 51702; 70450; 71275; 72125; 72128; 72131; 74022; 74177; 80048; 80061; 80076; 80307; 81001; 82150; 82550; 82803; 82947; 83690; 84484; 84702; 85025; 85610; 85730; 87804; 90471; 90686; 93005; 94640; 96361; 96374; 96375; G0480; J1885; J2060; J2405; J3010; J3490; J7120; J7620; Q9966; Q9967; 99285-25

== ENCOUNTER 2020-02-05 13:22 | Emergency (ER) | payer MEDICAID, OTHER ==
[2019-07-10 22:06] VITALS: BP 125/75
[~2020-02-05] VITALS: Ht 154.9 cm; Wt 68.2 kg
[~2020-02-05 13:22] MED LIST changes: +DIAZ5TAB4 PO; +DULO60CA6 PO; +EZET1TAB35 PO; +FLUO20CA20 PO; +GABA600T7 PO; +HYDR-2769 PO; +LACO200T PO; +LEVE10007 PO; +LEVO150T5 PO; +METO50TA29 PO; +MONT10TA80 PO; +NAPR-695 PO
--- NOTE | 2020-02-05 14:01 | RAD ---
EXAMINATION: PELVIS CLINICAL HISTORY: Reason: buttock pain / Spl. Instructions: / History: TECHNIQUE: PELVIS Number of different views (projections): 1 COMPARISON: None FINDINGS: Minimal axial joint space narrowing of the bilateral hips with small marginal osteophytes. Pubic symphysis and SI joints maintained. Partially visualized lumbar degenerative changes. No acute fracture. IMPRESSION: No acute osseous abnormality. Electronically signed by: Dmearco Teixeira DO (02/05/2020 1:58 PM) [id number]
--- NOTE | 2020-02-05 14:16 | PHYS DOC ---
Past History Past Medical History: Anxiety, Cancer, COPD, Depression, Diabetes, Fibromyalgia, High Cholesterol, Hypertension, Hypothyroid, Seizure, Stroke, Other Additional Past Medical Histor: gout, colon cancer, scoliosis, cererbellar ataxia, Past Surgical History: Cancer Surgery, Colectomy, Other Additional Past Surgical Histo: 6 hernia Smoking: Cigarettes, Greater than 1 pack/day Alcohol Use: None Drug Use: None General Adult EDM: Chief Complaint: FOREIGN BODY HPI: HPI: Patient is a 54-year-old female who presented to ER today for evaluation suspect of bugs impedded in her buttocks area. Patient said a bug travelled from her colostomy bag into her anus and then into her buttock area. No nausea vomiting, no fever. Review of Systems: Review of Systems: Constitutional: Denies fever or chills Eyes: Denies change in visual acuity HENT: Denies nasal congestion or sore throat Respiratory: Denies cough or shortness of breath Cardiovascular: Denies chest pain or edema GI: Denies abdominal pain, nausea, vomiting, bloody stools or diarrhea : Denies dysuria Musculoskeletal: Denies back pain or joint pain Integument: Denies rash Neurologic: Denies headache, focal weakness or sensory changes Endocrine: Denies polyuria or polydipsia Lymphatic: Denies swollen glands Psychiatric: Denies depression or anxiety Heart Score: Risk Factors: Risk Factors: DM, Current or recent (<one month) smoker, HTN, HLP, family history of CAD, obesity. Risk Scores: Score 0 - 3: 2.5% MACE over next 6 weeks - Discharge Home Score 4 - 6: 20.3% MACE over next 6 weeks - Admit for Clinical Observation Score 7 - 10: 72.7% MACE over next 6 weeks - Early Invasive Strategies Allergies: Allergies: Allergies Coded Allergies Type Severity Reaction Last Updated Verified No Known Drug Allergies 06/28/19 No Physical Exam: PE: Constitutional: Well developed, well nourished, no acute distress, non-toxic appearance. [] HENT: Normocephalic, atraumatic, bilateral external ears normal, oropharynx moist, no oral exudates, nose normal. [] Eyes: PERRLA, EOMI, conjunctiva normal, no discharge. [] Neck: Normal range of motion, no tenderness, supple, no stridor. [] Cardiovascular:Heart rate regular rhythm, no murmur [] Lungs & Thorax: Bilateral breath sounds clear to auscultation [] Abdomen: Bowel sounds normal, soft, no tenderness, no masses, no pulsatile masses. [] Skin: Warm, dry, no erythema, no rash. There is no foreign body in her anus. There is several skin abrasion on the right side of buttock. no induration, no purulent drainage. Back: No tenderness, no CVA tenderness. [] Extremities: No tenderness, no cyanosis, no clubbing, ROM intact, no edema. [] Neurologic: Alert and oriented X 3, normal motor function, normal sensory function, no focal deficits noted. [] Psychologic: Affect normal, judgement normal, mood normal. [] Current Patient Data: Vital Signs: Vital Signs Date Time Temp Pulse Resp B/P (MAP) Pulse Ox O2 Delivery O2 Flow Rate FiO2 02/05/20 13:33 98.5 104 18 188/100 (129) 98 Room Air EKG: EKG: [] Radiology/Procedures: Radiology/Procedures: [] Course & Med Decision Making: Course & Med Decision Making Pertinent Labs and Imaging studies reviewed. (See chart for details) Patient is a 54-year-old female who was evaluated in the ER because she believed that there is a big bug in her buttock area. there area three small skin abrasions where she dugged her finger nails into her right buttock area, patient said the bugs are in there. This physician put pressure around the wound, trying to express anything out but nothing coming out. Patient was still convi nced that there is a big bug in there. xray of her pelvic did not show any foreign object in her anus area. Dragon Disclaimer: Dragon Disclaimer: This electronic medical record was generated, in whole or in part, using a voice recognition dictation system. Departure Departure: Impression: Primary Impression: Skin abrasion Disposition: HOME/RESIDENCE PRIOR TO ADM Condition: STABLE Referrals: PCP,NO (PCP) Patient Instructions: Abrasion, [id number] Justification of Admission: Justification of Admission: Justification of Admission Dx: N/A JENIFFER DONOVAN DO Feb 05, 2020 14:15
== END 2020-02-05 14:33 | disposition home or self-care (01) ==
LOC: ER 13:22
DX: S30.810A Abrasion of lower back and pelvis, initial encounter (principal); F41.9 Anxiety disorder, unspecified; J44.9 Chronic obstructive pulmonary disease, unspecified; F32.9 Major depressive disorder, single episode, unspecified; M79.7 Fibromyalgia; E78.00 Pure hypercholesterolemia, unspecified; I10 Essential (primary) hypertension; E03.9 Hypothyroidism, unspecified; F17.210 Nicotine dependence, cigarettes, uncomplicated; E11.9 Type 2 diabetes mellitus without complications; W57.XXXA Bitten or stung by nonvenomous insect and other nonvenomous arthropods, initial encounter; Y93.89 Activity, other specified; Y92.89 Other specified places as the place of occurrence of the external cause; Y99.8 Other external cause status
CPT/HCPCS: 72170; 99284

== ENCOUNTER 2020-11-19 13:19 | Emergency (ER) | payer MEDICAID ==
[~2020-11-19] VITALS: Ht 154.9 cm; Wt 68.2 kg
[2020-11-19] MEDS ORDERED: MORPHINE SULFATE 2 MG/ML DISP.SYRIN. IV ONE (13:45)
[2020-11-19] MEDS ORDERED: IOHEXOL 300 MG/ML 75 ML VIAL. IV ONE (14:00)
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
--- NOTE | 2020-11-19 14:11 | EKG ---
[address] [address] Test Date: 2020-11-19 Test Time: 14:05:42 Pat Name: JOSE RAMON MENDOZA Department: Room: Gender: F Record Center Specialist: CLARENCE : 1965 Requested By: ELVIA JIMENEZ Order Number: [id number] Reading MD: Measurements Intervals [place] Rate: 57 P: 56 [place]: 166 QRS: 260 QRSD: 128 T: 256 QT: 488 QTc: 478 Interpretive Statements SINUS RHYTHM LOW LIMB LEAD VOLTAGE LEFT ANTERIOR FASCICULAR BLOCK RIGHT BUNDLE BRANCH BLOCK BIFASCICULAR BLOCK CONSIDER RIGHT VENTRICULAR HYPERTROPHY QRS(T) CONTOUR ABNORMALITY CONSIDER ANTEROSEPTAL MYOCARDIAL DAMAGE ABNORMAL ECG RI6.02 No previous ECG available for comparison
[2020-11-19 14:19] LABS: BASO # 0.1 x10^3/uL (0.0-0.2); BASO % 1 % (0-3); EOS # 0.2 x10^3/uL (0.0-0.7); EOS % 3 % (0-3); HEMATOCRIT 34.9 % (36.0-47.0); LYMPH # 2.1 x10^3/uL (1.0-4.8); LYMPH % 25 % (24-48); MEAN CORPUSCULAR HEMOGLOBIN 32 pg (25-35); MEAN CORPUSCULAR HGB CONC 34 g/dL (31-37); MEAN CORPUSCULAR VOLUME 93 fL (79-100); MONO # 0.6 x10^3/uL (0.0-1.1); MONO % 8 % (0-9); NEUT # 5.4 x10^3uL (1.8-7.7); NEUT % 64 % (31-73); PLATELET COUNT 316 x10^3/uL (140-400); RED BLOOD COUNT 3.76 x10^6/uL (3.50-5.40); RED CELL DISTRIBUTION WIDTH 14.9 % (11.5-14.5); WHITE BLOOD COUNT 8.5 x10^3/uL (4.0-11.0)
[2020-11-19 14:22] LABS: CREATININE 1.2 mg/dL (0.6-1.0); GFR 46.5; POTASSIUM 3.3 mmol/L (3.5-5.1)
[2020-11-19 14:40] LABS: ALBUMIN/GLOBULIN RATIO 1.1 (1.0-1.7); TOTAL BILIRUBIN 0.4 mg/dL (0.2-1.0); TOTAL PROTEIN 7.7 g/dL (6.4-8.2)
[2020-11-19 14:41] LABS: FECAL OB PT NEGATIVE (NEG)
[2020-11-19 15:06] LABS: AMPHETAMINE/METHAMPHETAMINE NEG (NEG); BARBITURATES NEG (NEG); BENZODIAZEPINES NEG (NEG); CANNABINOIDS NEG (NEG); COCAINE POS (NEG); METHADONE NEG (NEG); OPIATES NEG (NEG); PHENCYCLIDINE NEG (NEG)
--- NOTE | 2020-11-19 15:06 | RAD ---
CT HEAD WITHOUT CONTRAST 11/19/2020 2:05 PM Indication: Reason: seizure, head pain, neck pain / Spl. Instructions: / History: Comparison: CT head and cervical spine July 09, 2019 Procedure: Multidetector CT imaging of the head was performed without the administration of contrast. Findings: There is no evidence of acute intracranial hemorrhage. There is no evidence of acute territ orial infarction. Please note that CT is limited for evaluation of acute ischemia. No mass effect or midline shift is identified . The ventricles and basilar cisterns have an appropriate appearance. No abnormal extra-axial fluid collections are seen. No acute osseous changes are identified. Impression: No evidence of acute intracranial abnormality CT cervical spine without contrast. 11/19/2020 2:05 PM Indication:Reason: seizure, head pain, neck pain / Spl. Instructions: / History: Comparison Study: CT head and cervical spine July 09, 2019 Technique: Multidetector CT imaging of the cervical spine was obtained without administration of cont rast. Findings: There is no evidence of acute fracture or alignment abnormality of the cervical spine.. Ml tebral body heights are maintained.. The atlantoaxial articulation is within normal limits. There is no prevertebral soft tissue swelling. Soft tissues are otherwise unremarkable. No bony compromise of the spinal canal is seen. Impression: No evidence of acute fracture or alignment abnormality of the cervical spine CT DOSING PQRS STATEMENT: One or more of the following individualized dose reduction techniques were utilized for this examinat ion: 1. Automated exposure control 2. Adjustment of the mA and/or kV according to patient size 3. Use of iterative reconstruction technique Electronically signed by: Yunier Young MD (11/19/2020 3:03 PM) [id number]
[2020-11-19] MEDS ORDERED: POTASSIUM CHLORIDE 20 MEQ TABLET.ER. PO ONE (15:15)
--- NOTE | 2020-11-19 15:26 | RAD ---
Exam: CT of chest, abdomen and pelvis with contrast INDICATION: Superior prior to arrival, right lower quadrant abdominal pain, swelling at stoma site TECHNIQUE: Sequential axial images through the chest, abdomen and pelvis obtained following the admin istration of 75 mL of Isovue-370 IV contrast. Sagittal and coronal reformatted images were reconstruc gregorio from the axial data and reviewed. Exposure: One or more of the following in the visualized dose reduction techniques were utilized for this examination: 1. Automated exposure control 2. Adjustment of the MA and/or KV according to patient size 3. Use of iterative of reconstructive technique Comparisons: 07/09/2019 FINDINGS: Is portions of the thyroid are unremarkable. No enlarged mediastinal lymph nodes are identified. Heart size is normal. No pericardial effusion. Thoracic aorta has a normal course and caliber. Pulmon salud artery is not enlarged. No pulmonary embolus identified within the main, lobar or segmental pulmo nary arteries. Airways are patent. No consolidation or pneumothorax. No suspicious lung nodules are identified. No pleural effusion or thickening. Liver, spleen, pancreas, and adrenals are unremarkable. Gallbladder surgically absent. No perinephric inflammation or hydronephrosis. Several nonobstructing right renal calculi are noted. No ureteral calculi are identified. Bladder is partially distended and not well evaluated. Uterus is absent. No abnormal adnexal mass. There is a left lower quadrant colostomy. Remainder large and small bowel are unremarkable. No free i ntra-abdominal air or fluid. No obstruction. Abdominal aorta has a normal course and caliber. Abdominal vasculature is patent. No enlarged intra-abdominal lymph nodes are identified. No suspicious osseous lesions or acute fractures. IMPRESSION: 1. Left lower quadrant loop colostomy with a small parastomal hernia. No evidence for obstruction. 2. No acute processes identified within the chest. 3. Nonobstructing right renal calculi. No evidence for obstructive uropathy. 4. Mild wall thickening noted at the cecum with mucosal hyperenhancement, relate to focal colitis. C orrelate with symptomatology. Electronically signed by: Zee Contreras MD (11/19/2020 3:23 PM) [facility]
[2020-11-19 15:43] LABS: BILIRUBIN,URINE NEG (NEG); CLARITY,URINE CLEAR; COLOR,URINE YELLOW; GLUCOSE,URINE NEG (NEG)
[2020-11-19 15:44] LABS: NITRITE,URINE NEG (NEG); UROBILINOGEN,URINE 0.2 mg/dL (0.2 mg/dL)
[2020-11-19 15:46] LABS: BACTERIA,URINE 0 /HPF (0-FEW); SQUAMOUS EPITHELIAL CELL,UR FEW /LPF
[2020-11-19 16:21] VITALS: BP 149/75
[2020-11-19] MEDS ORDERED: BACI28.34 TP (16:31)
[2020-11-19] MEDS ORDERED: BACITRACIN ZINC TOPICAL OINT PACKET. TP ONE (16:45)
== END 2020-11-19 16:58 | disposition home or self-care (01) ==
LOC: ER 13:19
DX: G40.89 Other seizures (principal); R51.9 Headache, unspecified; M54.2 Cervicalgia; F41.9 Anxiety disorder, unspecified; J44.9 Chronic obstructive pulmonary disease, unspecified; F32.9 Major depressive disorder, single episode, unspecified; E11.9 Type 2 diabetes mellitus without complications; M79.7 Fibromyalgia; E78.00 Pure hypercholesterolemia, unspecified; I10 Essential (primary) hypertension; E03.9 Hypothyroidism, unspecified; F17.210 Nicotine dependence, cigarettes, uncomplicated; Z86.73 Personal history of transient ischemic attack (TIA), and cerebral infarction without residual deficits; Z90.49 Acquired absence of other specified parts of digestive tract; Z88.5 Allergy status to narcotic agent
CPT/HCPCS: 36415; 70450; 71260; 72125; 74177; 80053; 80307; 81001; 82274; 82553; 83605; 84484; 85025; 93005; 96374; 99285; J3010; Q9967

== ENCOUNTER 2021-01-03 10:44 | Observation (INO) | payer MEDICAID ==
[~2021-01-03] VITALS: Ht 162.6 cm; Wt 61.8 kg
[~2021-01-03 10:44] MED LIST changes: +BACI28.34 TP
[2021-01-03] MEDS ORDERED: KETOROLAC 15 MG/ML VIAL. IVP ONE (11:30)
--- NOTE | 2021-01-03 11:30 | PHYS DOC ---
Past History Past Medical History: Anxiety, Cancer, COPD, Depression, Diabetes, Fibromyalgia, High Cholesterol, Hypertension, Hypothyroid, Seizure, Stroke, Other Additional Past Medical Histor: gout, colon cancer, scoliosis, cererbellar ataxia, (CITLALLI VASQUEZ APRN) Past Surgical History: Cancer Surgery, Colectomy, Other Additional Past Surgical Histo: 6 hernia (CITLALLI VASQUEZ APRN) Smoking: Cigarettes, Greater than 1 pack/day Alcohol Use: None Drug Use: None (CITLALLI VASQUEZ APRN) General Adult EDM: Chief Complaint: WEAKNESS/GENERALIZED HPI: HPI: Patient is a 55-year-old female being seen in the ER for multiple complaints. Patient was at her primary care provider's office for chronic back pain evaluation when staff at the office reported that patient was not acting like she normally is. Patient has a long neurological history including cerebellar ataxia, MS, TIAs, seizures. She reports that ever since she started having seizures 3 years ago she has had ataxia, garbled speech that is intermittent, and generalized weakness. At this time patient does have garbled speech and is difficult to understand her, her states that she does have speech like this intermittently and if we would just give her a pain shot then her speech would go back to normal. Patient denies any urinary complaints, chest pain, shortness of breath, or unilateral weakness. (CITLALLI VASQUEZ APRN) Review of Systems: Review of Systems: 14 body systems of the review of systems have been reviewed. See HPI for pertinent positive and negative responses, otherwise all other systems are neg ative, nonpertinent or noncontributory (CITLALLI VASQUEZ APRN) Allergies: Allergies: Allergies Coded Allergies Type Severity Reaction Last Updated Verified morphine Allergy Unknown 11/19/20 Yes (CITLALLI VASQUEZ APRN) Physical Exam: PE: Constitutional: Well developed, well nourished, no acute distress, non-toxic appearance. [] HENT: Normocephalic, atraumatic, bilateral external ears normal, oropharynx moist, no oral exudates, nose normal. [] Eyes: PERRLA, 3 mm bilaterally, EOMI, conjunctiva normal, no discharge. [] Neck: Normal range of motion, no bony spinal tenderness, supple, no stridor. [] Cardiovascular:Heart rate regular rhythm, no murmur [] Lungs & Thorax: Bilateral breath sounds clear to auscultation [] Abdomen: Bowel sounds normal, soft, no tenderness, no masses, no pulsatile masses, colectomy noted, no signs of infection like redness/warmth surrounding cholectomy site. [] Skin: Warm, dry, no erythema, no rash. [] Back: Left lumbar paraspinal tenderness with palpation, no CVA tenderness. [] Extremities: No tenderness, no cyanosis, no clubbing, ROM intact, no edema. [] Neurologic: Alert and oriented X 3, patient has generalized weakness and slow motor function, normal sensory function, no focal deficits noted, normal [id number]-[id number] test, equal strengths upper extremities, no arm drift, garbled speech. [] Psychologic: Affect normal, judgement normal, mood normal. [] (CITLALLI VASQUEZ APRN) Current Patient Data: Labs: Laboratory Tests Test 01/03/21 11:52 White Blood Count 5.6 x10^3/uL Red Blood Count 3.38 x10^6/uL Hemoglobin 11.0 g/dL Hematocrit 32.8 % Mean Corpuscular Volume 97 fL Mean Corpuscular Hemoglobin 33 pg Mean Corpuscular Hemoglobin Concent 34 g/dL Red Cell Distribution Width 14.7 % Platelet Count 109 x10^3/uL Neutrophils (%) (Auto) 43 % Lymphocytes (%) (Auto) 39 % Monocytes (%) (Auto) 13 % Eosinophils (%) (Auto) 5 % Basophils (%) (Auto) 1 % Neutrophils # (Auto) 2.4 x10^3uL Lymphocytes # (Auto) 2.2 x10^3/uL Monocytes # (Auto) 0.7 x10^3/uL Eosinophils # (Auto) 0.3 x10^3/uL Basophils # (Auto) 0.0 x10^3/uL Sodium Level 147 mmol/L Potassium Level 3.8 mmol/L Chloride Level 108 mmol/L Carbon Dioxide Level 34 mmol/L Anion Gap 5 Blood Urea Nitrogen 15 mg/dL Creatinine 0.6 mg/dL Estimated GFR (Cockcroft-Gault) 103.4 BUN/Creatinine Ratio 25 Glucose Level 79 mg/dL Calcium Level 8.2 mg/dL Total Bilirubin 0.2 mg/dL Aspartate Amino Transf (AST/SGOT) 12 U/L Alanine Aminotransferase (ALT/SGPT) 13 U/L Alkaline Phosphatase 59 U/L Troponin I Quantitative < 0.017 ng/mL Total Protein 6.1 g/dL Albumin 3.4 g/dL Albumin/Globulin Ratio 1.3 Current Medications Medications (Trade) Dose Ordered Sig/Tay Route PRN Reason Start Time Stop Time Status Last Admin Dose Admin Ketorolac Tromethamine (Toradol 15mg Vial) 15 mg 1X ONCE IVP 01/03/21 11:30 01/03/21 11:31 DC 01/03/21 11:30 Vital Signs: Vital Signs Date Time Temp Pulse Resp B/P (MAP) Pulse Ox O2 Delivery O2 Flow Rate FiO2 01/03/21 10:50 98.3 74 16 136/89 100 Room Air (CITLALLI VASQUEZ RESOLUTION SPECIALIST) EKG: EKG: EKG was performed by ER staff at 1144. It shows sinus rhythm, no STEMI as read by ER physician at 1147. [] (CITLALLI VASQUEZ APRN) Radiology/Procedures: Radiology/Procedures: PROCEDURE: CT HEAD AND CERVICAL SPINE [facility] Compliance Statement: One or more of the following individualized dose reduction techniques were utilized for this examination: 1. Automated exposure control 2. Adjustment of the mA and/or kV according to patient size 3. Use of iterative reconstruction technique CT head and cervical spine without contrast 01/03/2021 11:[address] lumbar spine without contrast INDICATION: Altered mental status COMPARISON: CT head and cervical spine 11/19/2020 TECHNIQUE: Multiple axial CT images of the head were obtained from skull base through the vertex without intravenous contrast. Multiple axial CT images of the cervical spine were obtained without intravenous contrast. Multiple axial CT images of the lumbar spine were obtained without intravenous contrast. Coronal and sagittal reformats are provided. FINDINGS: Head: Ventricles, sulci and basal cisterns are within normal limits. There is no hydr ocephalus. Canas-white matter differentiation is normal. There is no acute intracranial hemorrhage. There is no mass, mass effect or midline shift. Posterior fossa is normal in appearance. Visualized portions of the orbits are normal. Paranasal sinuses are well aerated. Mastoid air cells are well aerated. Scalp and calvaria are normal. Cervical spine: Minimal retrolisthesis of C4 on C5 measuring 2 mm.. Skull base is intact. Craniocervical junction is normal in appearance. Atlantoaxial articulation is normal. Vertebral body heights are maintained without evidence for acute fracture. Mild disc height loss at C5-C6 and C6-C7. At C4-C5, there is a right central disc protrusion. Mild facet and uncovertebral joint disease resulting in mild left neuroforaminal stenosis and mild spinal canal stenosis. At C5-C6, is a posterior disc osteophyte complex with mild facet arthropathy and moderate uncovertebral joint disease resulting in moderate bilateral neuroforaminal stenosis mild spinal canal stenosis. At C6-C7, is a posterior disc osteophyte complex with mild facet and moderate uncovertebral joint disease resulting in moderate bilateral neuroforaminal stenosis, right greater than left. There is mild spinal canal stenosis. There is no prevertebral soft tissue swelling. Thyroid gland is normal in appearance. Visualized portions of the lung apices are normal without evidence for suspicious pulmonary nodule or infiltrate. Right level 2 cervical lymph node measures 5 mm by short axis. Lumbar spine: There is 3 mm retrolisthesis of L2 on L3. There is 2 mm anterolisthesis of L3 on L4. There is a millimeter anterolisthesis of L4 on L5. Vertebral body heights are maintained. No acute fractures identified. Sacroiliac joints are well aligned. Visualized sacrum is intact. Mild to moderate intramarginal osteophytosis. At L2-L3 there is a circumferential disc bulge with mild facet arthropathy resulting in mild bilateral neuroforaminal stenosis and mild spinal canal stenosis. At L3-L4, there is a circumferential disc bulge with moderate facet arthropathy ligamentum flavum infolding resulting in moderate bilateral neural foraminal stenosis and mild spinal canal stenosis. At L4-L5, there is mild disc bulge asymmetric to the right with severe facet arthropathy resulting in moderate left and mild right neural foraminal stenosis without significant spinal canal stenosis. Abdominal aorta is normal in caliber with dense calcified atheromatous plaque. Urinary bladder is within normal limits as visualized. No suspicious intracranial abnormality is identified. IMPRESSION: 1. No acute intracranial hemorrhage. 2. No acute fracture of the cervical spine. Mild cervical spondylosis. 2. Mild lumbar spondylosis without acute fracture. Electronically signed by: Ashley Howard MD (01/03/2021 11:55 AM) [id number][] (CITLALLI VASQUEZ APRN) Heart Score: C/O Chest Pain: No Risk Factors: Risk Factors: DM, Current or recent (<one month) smoker, HTN, HLP, family history of CAD, obesity. Risk Scores: Score 0 - 3: 2.5% MACE over next 6 weeks - Discharge Home Score 4 - 6: 20.3% MACE over next 6 weeks - Admit for Clinical Observation Score 7 - 10: 72.7% MACE over next 6 weeks - Early Invasive Strategies (CITLALLI VASQUEZ APRN) Course & Med Decision Making: Course & Med Decision Making Pertinent Labs and Imaging studies reviewed. (See chart for details) [] Patient is a 55-year-old female being seen in the ER for chronic back pain. Patient also has an extensive neurological history is having generalized weakness, intermittent garbled speech for the last 3 years. Patient has an extensive neuro history of cerebellar ataxia, MS, TIA, seizures. Patient's work-up in the ER consisted of blood work, EKG, CT of head/neck and lumbar spine, UA. Imaging of patient's head/neck and spine were negative for any acute findings. EKG negative for STEMI. Lab work is mostly unremarkable. At 1253 I reevaluated patient and her speech is now clear. I discussed with patient the ability for her to care for herself due to her generalized weakness, patient reports that she would like to have home health because she does not think she can take care of herself at home. I spoke with Dr. Seay regarding patient's case and he agreed to admit the patient under his service for generalized weakness and a neurology consult. Care transferred at this time 1315. (CITLALLI VASQUEZ APRN) Dragon Disclaimer: Dragon Disclaimer: This electronic medical record was generated, in whole or in part, using a voice recognition dictation system. (CITLALLI VASQUEZ APRN) Dragon Disclaimer: I have participated in the care of this patient and I have reviewed and agree with all pertinent clinical information above including history, exam, and recommendations. (COLE MARTEL DO) Departure Departure: Impression: Primary Impression: Generalized weakness Disposition: ADMITTED INPATIENT Admitting Physician: Ira Vo (CITLALLI VASQUEZ APRN) Condition: STABLE Referrals: DAVID LUKE MD (PCP) CITLALLI VASQUEZ APRN Jan 03, 2021 11:30 COLE MARTEL DO Jan 03, 2021 15:23
--- NOTE | 2021-01-03 11:58 | RAD ---
PQRS Compliance Statement: One or more of the following individualized dose reduction techniques were utilized for this examinat ion: 1. Automated exposure control 2. Adjustment of the mA and/or kV according to patient size 3. Use of iterative reconstruction technique CT head and cervical spine without contrast 01/03/2021 11:[address] lumbar spine without contrast INDICATION: Altered mental status COMPARISON: CT head and cervical spine 11/19/2020 TECHNIQUE: Multiple axial CT images of the head were obtained from skull base through the vertex with out intravenous contrast. Multiple axial CT images of the cervical spine were obtained without intrav enous contrast. Multiple axial CT images of the lumbar spine were obtained without intravenous contra st. Coronal and sagittal reformats are provided. FINDINGS: Head: Ventricles, sulci and basal cisterns are within normal limits. There is no hydrocephalus. Canas-white matter differentiation is normal. There is no acute intracranial hemorrhage. There is no mass, mass e ffect or midline shift. Posterior fossa is normal in appearance. Visualized portions of the orbits are normal. Paranasal sinuses are well aerated. Mastoid air cells a re well aerated. Scalp and calvaria are normal. Cervical spine: Minimal retrolisthesis of C4 on C5 measuring 2 mm.. Skull base is intact. Craniocervical junction is normal in appearance. Atlantoaxial articulation is normal. Vertebral body heights are maintained without evidence for acute fracture. Mild disc height loss at C5-C6 and C6-C7. At C4-C5, there is a right central disc protrusion. Mild fa cet and uncovertebral joint disease resulting in mild left neuroforaminal stenosis and mild spinal ca nal stenosis. At C5-C6, is a posterior disc osteophyte complex with mild facet arthropathy and modera te uncovertebral joint disease resulting in moderate bilateral neuroforaminal stenosis mild spinal ca nal stenosis. At C6-C7, is a posterior disc osteophyte complex with mild facet and moderate uncoverte bral joint disease resulting in moderate bilateral neuroforaminal stenosis, right greater than left. There is mild spinal canal stenosis. There is no prevertebral soft tissue swelling. Thyroid gland is normal in appearance. Visualized port ions of the lung apices are normal without evidence for suspicious pulmonary nodule or infiltrate. Ri ght level 2 cervical lymph node measures 5 mm by short axis. Lumbar spine: There is 3 mm retrolisthesis of L2 on L3. There is 2 mm anterolisthesis of L3 on L4. There is a evelyn meter anterolisthesis of L4 on L5. Vertebral body heights are maintained. No acute fractures identifi ed. Sacroiliac joints are well aligned. Visualized sacrum is intact. Mild to moderate intramarginal o steophytosis. At L2-L3 there is a circumferential disc bulge with mild facet arthropathy resulting in mild bilateral neuroforaminal stenosis and mild spinal canal stenosis. At L3-L4, there is a circumfe rential disc bulge with moderate facet arthropathy ligamentum flavum infolding resulting in moderate bilateral neural foraminal stenosis and mild spinal canal stenosis. At L4-L5, there is mild disc bulg e asymmetric to the right with severe facet arthropathy resulting in moderate left and mild right denilson ral foraminal stenosis without significant spinal canal stenosis. Abdominal aorta is normal in calibe r with dense calcified atheromatous plaque. Urinary bladder is within normal limits as visualized. No suspicious intracranial abnormality is identified. IMPRESSION: 1. No acute intracranial hemorrhage. 2. No acute fracture of the cervical spine. Mild cervical spondylosis. 2. Mild lumbar spondylosis without acute fracture. Electronically signed by: Ashley Howard MD (01/03/2021 11:55 AM) [id number]
[2021-01-03 12:20] LABS: BASO % 1 % (0-3); EOS # 0.3 x10^3/uL (0.0-0.7); EOS % 5 % (0-3); HEMATOCRIT 32.8 % (36.0-47.0); LYMPH # 2.2 x10^3/uL (1.0-4.8); LYMPH % 39 % (24-48); MEAN CORPUSCULAR HEMOGLOBIN 33 pg (25-35); MEAN CORPUSCULAR HGB CONC 34 g/dL (31-37); MEAN CORPUSCULAR VOLUME 97 fL (79-100); MONO # 0.7 x10^3/uL (0.0-1.1); MONO % 13 % (0-9); NEUT # 2.4 x10^3uL (1.8-7.7); NEUT % 43 % (31-73); PLATELET COUNT 109 x10^3/uL (140-400); RED BLOOD COUNT 3.38 x10^6/uL (3.50-5.40); RED CELL DISTRIBUTION WIDTH 14.7 % (11.5-14.5); WHITE BLOOD COUNT 5.6 x10^3/uL (4.0-11.0)
--- NOTE | 2021-01-03 12:25 | EKG ---
[address] [address] Test Date: 2021-01-03 Test Time: 11:44:59 Pat Name: JOSE RAMON MENDOZA Department: Room: Gender: F Continuous Improvement Coach: LORA : 1965 Requested By: CITLALLI VASQUEZ Order Number: [id number] Reading MD: Measurements Intervals [place] Rate: 60 P: 41 [place]: 160 QRS: -2 QRSD: 124 T: 28 QT: 464 QTc: 464 Interpretive Statements SINUS RHYTHM LOW LIMB LEAD VOLTAGE RIGHT BUNDLE BRANCH BLOCK ABNORMAL ECG RI6.02 No previous ECG available for comparison
[2021-01-03 12:31] LABS: CALCIUM 8.2 mg/dL (8.5-10.1); CREATININE 0.6 mg/dL (0.6-1.0); GFR 103.4; POTASSIUM 3.8 mmol/L (3.5-5.1)
[2021-01-03 12:37] LABS: ALBUMIN 3.4 g/dL (3.4-5.0); ALBUMIN/GLOBULIN RATIO 1.3 (1.0-1.7); TOTAL BILIRUBIN 0.2 mg/dL (0.2-1.0); TOTAL PROTEIN 6.1 g/dL (6.4-8.2)
[2021-01-03] MEDS ORDERED: IV NORMAL SALINE 1,000ML 1,000 ML IV SCH (13:30)
[2021-01-03] MEDS: POTASSIUM CL 20MEQ D5-0.2%NACL 1,000 ML IV SCH (17:30)
[2021-01-03] MEDS: LIDOCAINE (700MG/PATCH) PATCH. TD SCH (17:30)
--- NOTE | 2021-01-03 17:32 | HP ---
ADMIT DATE: 01/03/2021 HISTORY OF PRESENT ILLNESS: The patient is a 55-year-old female patient who was referred to emergency room from her primary care physician, Dr. Man on account of worsening back pain. No history of fall or trauma. 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 He was extensively evaluated in the Emergency Room, has had lab work as well as imaging studies. Her lab work showed CBC which was unremarkable except for mild thrombocytopenia. Her chemistry showed hypernatremia and otherwise most of her lab works were unremarkable. She did have a CT scan of the head and cervical spine, which showed no acute intracranial abnormalities, no acute fracture cervical spine, mild cervical spondylosis and mild lumbar spondylosis without acute fracture and CT scan of the lumbar spine showed she has mild lumbar spondylosis without acute fracture. The patient was admitted for generalized weakness and acute on chronic low back pain. PAST MEDICAL HISTORY: Significant for hypertension, type 2 diabetes mellitus, hyperlipidemia, cerebrovascular accident, solitary functioning kidney, hypothyroidism, COPD, gout and osteoporosis. She did have also a colon cancer 3 years ago and lymphoma, treated with chemotherapy and is known to have spinocerebellar ataxia. She is apparently mostly wheelchair bound. Her takes care of her completely. She is dependent in 6/6 of activities of daily living. PAST SURGICAL HISTORY: Significant for multiple colonoscopies and polypectomies. She also underwent a partial colectomy and colostomy, appendectomy, total abdominal hysterectomy, bilateral salpingo-oophorectomy, tonsillectomy, cholecystectomy, left knee arthroscopic surgery, right rotator cuff repair. She also underwent esophagogastroduodenoscopy and multiple colonoscopies. ALLERGIES: SHE IS ALLERGIC TO MORPHINE. MEDICATIONS: She is currently on the following medication: She is on Zetia, simvastatin for Vytorin 10/40 mg once a day at bedtime, metoprolol succinate 50 mg daily, naproxen 375 mg 3 times a day, hydrocodone/APAP 10/325 one tablet every 8 hours, gabapentin 600 mg twice a day, lacosamide 200 mg twice a day, levetiracetam 1000 mg twice a day, duloxetine 60 mg twice a day, fluoxetine 20 mg once a day, diazepam 5 mg 3 times a day, Singulair 10 mg once a day, levothyroxine sodium 150 mcg once a day and bacitracin, polymyxin ointment apply topically as skin stoma care. FAMILY HISTORY: Her mother at age of 46 because of lymphoma. Father at age of 84 because of colon cancer. She has 1 sister who lives here and she actually moved from [place] to be nearby her sisters. SOCIAL HISTORY: She is , has no children. She smokes 2 cigarettes a day, does not drink alcohol or recreational drugs. REVIEW OF SYSTEMS: As per history of present illness. PHYSICAL EXAMINATION: GENERAL: When I examined her today in the emergency room, she was somewhat pale, cachectic, but no jaundice, cyanosis or thyromegaly. No jugular venous distention. No limb edema. VITAL SIGNS: Her heart rate was 74, blood pressure is 132/78, temperature was 98.3, respiratory rate was 16 and oxygen saturation was 100% on room air. HEAD, EYES, EARS, NOSE, AND THROAT: Normocephalic, atraumatic. NECK: Supple. HEART: Normal first and second heart sounds, no gallop, rub or murmur. CHEST: Clear to auscultation. No crepitation or rhonchi. ABDOMEN: Distended, soft with a colostomy in the left lower quadrant. The patient does not tolerate the colostomy bag as SHE IS ALLERGIC TO The GLUE DAIRY. There is no guarding or rigidity. No organomegaly. All hernial orifice intact. Bowel sounds normal. NEUROLOGIC: She is awake, alert. All her cranial nerves intact. She moves her upper extremities to much good extent than lower extremities. She actually has a fixed flexion contraction of both lower extremities and bilateral foot drop. LABORATORY DATA: Showed a white cell count 5600, hemoglobin 11, hematocrit 33, MCV 97 and platelet count of 109,000. Chemistry showed a serum sodium 147, potassium 3.8, chloride 108, bicarbonate 34, anion gap of 5, BUN 15, creatinine 0.6. Estimated GFR was 103 mL per minute. Her glucose was 79, calcium was 8.2. Total bilirubin, AST, ALT, alkaline phosphatase were normal. Total protein 6.1, albumin was 3.4. In summary, this is a 55-year-old female patient who was admitted with generalized weakness and worsening lower back pain. The patient has a multitude of medical problems including spinocerebellar ataxia, hypertension, type 2 diabetes mellitus, hyperlipidemia, chronic kidney disease due to solitary functioning kidney, hypothyroidism, COPD, gout and osteoarthritis. She does have colon cancer, status post partial colectomy and colostomy, history of lymphoma, treated with chemotherapy. Plan is to reconcile all her medications, started on IV fluid and pain medication. JAME DR: Cindy TID: [id number]
[2021-01-03 17:48] VITALS: BP 107/69
[2021-01-03] MEDS: PATCH REMOVAL. MC SCH (18:32)
[2021-01-03] MEDS: HYDROcodone/APAP 10/325 1 TAB TABLET PO PRN (18:37)
[2021-01-03 20:16] VITALS: BP 92/56
[2021-01-03] MEDS: GABAPENTIN 300 MG CAPSULE. PO SCH (21:12)
[2021-01-03] MEDS: NAPROXEN 375 MG TABLET PO SCH (21:12)
[2021-01-03] MEDS: SIMVASTATIN 40 MG TABLET. PO SCH (21:12)
[2021-01-03] MEDS: DULoxetine HCL 60 MG CAPSULE.DR PO SCH (21:12)
[2021-01-03] MEDS: EZETIMIBE 10 MG TABLET PO SCH (21:12)
[2021-01-03] MEDS: MONTELUKAST 10 MG TABLET. PO SCH (21:12)
[2021-01-03] MEDS: diazePAM 5 MG TABLET. PO SCH (21:13)
[2021-01-03] MEDS: levETIRAcetam 500 MG TABLET PO SCH (21:13)
[2021-01-03] MEDS: LACOSAMIDE 50 MG TABLET PO SCH (21:13)
[2021-01-03] MEDS: BACITRACIN ZINC TOPICAL OINT PACKET. TP SCH (21:14)
[2021-01-03 23:28] VITALS: BP 114/78
[2021-01-04] MEDS: POTASSIUM CL 20MEQ D5-0.2%NACL 1,000 ML IV SCH ×2 (03:30→13:30)
[2021-01-04] MEDS: HYDROcodone/APAP 10/325 1 TAB TABLET PO PRN (03:36)
[2021-01-04] MEDS: LEVOTHYROXINE 150 MCG TABLET PO SCH (05:10)
[2021-01-04 05:18] VITALS: BP 95/67
[2021-01-04 06:08] LABS: BACTERIA,URINE FEW /HPF (0-FEW); BILIRUBIN,URINE NEG (NEG); CLARITY,URINE HAZY; COLOR,URINE YELLOW; GLUCOSE,URINE NEG (NEG); NITRITE,URINE NEG (NEG); SQUAMOUS EPITHELIAL CELL,UR OCC /LPF; UROBILINOGEN,URINE 0.2 mg/dL (0.2 mg/dL)
[2021-01-04 07:06] LABS: BASO % 1 % (0-3); EOS # 0.3 x10^3/uL (0.0-0.7); EOS % 5 % (0-3); HEMATOCRIT 31.3 % (36.0-47.0); HEMOGLOBIN 10.3 g/dL (12.0-15.5); LYMPH # 2.2 x10^3/uL (1.0-4.8); LYMPH % 42 % (24-48); MEAN CORPUSCULAR HEMOGLOBIN 32 pg (25-35); MEAN CORPUSCULAR HGB CONC 33 g/dL (31-37); MEAN CORPUSCULAR VOLUME 98 fL (79-100); MONO # 0.8 x10^3/uL (0.0-1.1); MONO % 16 % (0-9); NEUT # 1.9 x10^3uL (1.8-7.7); NEUT % 37 % (31-73); PLATELET COUNT 115 x10^3/uL (140-400); RED BLOOD COUNT 3.21 x10^6/uL (3.50-5.40); RED CELL DISTRIBUTION WIDTH 14.9 % (11.5-14.5); WHITE BLOOD COUNT 5.1 x10^3/uL (4.0-11.0)
[2021-01-04 07:26] LABS: ALBUMIN 3.1 g/dL (3.4-5.0); ALBUMIN/GLOBULIN RATIO 1.1 (1.0-1.7); CALCIUM 7.8 mg/dL (8.5-10.1); CREATININE 0.6 mg/dL (0.6-1.0); GFR 103.4; POTASSIUM 3.7 mmol/L (3.5-5.1); TOTAL BILIRUBIN 0.1 mg/dL (0.2-1.0); TOTAL PROTEIN 5.8 g/dL (6.4-8.2)
[2021-01-04 08:44] VITALS: BP 113/76
[2021-01-04] MEDS: BACITRACIN ZINC TOPICAL OINT PACKET. TP SCH ×3 (08:59→22:00)
[2021-01-04] MEDS: LACOSAMIDE 50 MG TABLET PO SCH ×2 (09:00→22:00)
[2021-01-04] MEDS: levETIRAcetam 500 MG TABLET PO SCH ×2 (09:00→22:02)
[2021-01-04] MEDS: DULoxetine HCL 60 MG CAPSULE.DR PO SCH ×2 (09:01→22:02)
[2021-01-04] MEDS: GABAPENTIN 300 MG CAPSULE. PO SCH ×2 (09:01→22:01)
[2021-01-04] MEDS: METOPROLOL SUCC 24HR ER 50 MG TAB.ER.24H. PO SCH (09:01)
[2021-01-04] MEDS: NAPROXEN 375 MG TABLET PO SCH ×3 (09:01→22:01)
[2021-01-04] MEDS: diazePAM 5 MG TABLET. PO SCH ×3 (09:02→22:02)
[2021-01-04] MEDS: LIDOCAINE (700MG/PATCH) PATCH. TD SCH (09:10)
[2021-01-04 10:56] VITALS: BP 106/67
[2021-01-04 15:21] VITALS: BP 104/67
[2021-01-04 19:56] VITALS: BP 108/71
[2021-01-04] MEDS: PATCH REMOVAL. MC SCH (21:00)
[2021-01-04] MEDS: EZETIMIBE 10 MG TABLET PO SCH (21:00)
[2021-01-04] MEDS: SIMVASTATIN 40 MG TABLET. PO SCH (22:02)
[2021-01-04] MEDS: MONTELUKAST 10 MG TABLET. PO SCH (22:02)
[2021-01-05] MEDS ORDERED: POTASSIUM CHLORIDE 10 MEQ IV ONE (00:11)
[2021-01-05] MEDS ORDERED: POTASSIUM CHLORIDE 20MEQ 100 ML IV ONE ×2 (00:12→19:31)
[2021-01-05] MEDS: POTASSIUM CL 20MEQ D5-0.2%NACL 1,000 ML IV SCH ×2 (00:40→09:30)
--- NOTE | 2021-01-05 03:47 | PN ---
DATE: 01/04/2021 SUBJECTIVE: The patient was admitted yesterday through the Emergency Room with a complaint of worsening low back pain and generalized weakness. She apparently requiring total care from her . She is mostly bedbound and wheelchair bound. She is very unsteady on her feet due to spinocerebellar ataxia. She also is very ALLERGIC TO COLOSTOMY BAGS and has only cover her stoma with dressing. She apparently was seen by the physical therapist this morning and when she is being transferred to the wheelchair, she started having seizures that was witnessed by the physical therapist as well as the nursing staff and [employer]. She is edentulous; however, she obviously did not bite her tongue, although they said the patient has tonic-clonic seizure and she was unresponsive for about a minute. The patient is already on 4 anti-seizure medications. She is on Keppra, lacosamide, gabapentin as well as diazepam. PHYSICAL EXAMINATION: general: When I saw her today, she looked well and was clearly in no apparent respiratory distress. She is pale. No jaundice, cyanosis, no lymphadenopathy, no thyromegaly, no jugular venous distention. No limb edema. VITAL SIGNS: Her heart rate was 64, blood pressure is 113/76, temperature was 97.3, respiratory rate was 16 and oxygen saturation was 94% on room air. HEAD, EYES, EARS, NOSE, AND THROAT: Normocephalic, atraumatic. She is edentulous. NECK: Supple. HEART: Normal first and second heart sounds, no gallop or murmur. CHEST: Clear to auscultation. No crepitation or rhonchi. ABDOMEN: Scaphoid, soft with a stoma in the left lower quadrant. The patient uses Depends on as she is ALLERGIC TO GLUE IN THE COLOSTOMY BAG. There is no tenderness. No guarding or rigidity. No organomegaly. All hernial orifice intact. Bowel sounds normal. NEUROLOGIC: She is awake, alert. All her cranial nerves intact. EXTREMITIES: She seems to be able to move her upper extremities to ____ extend the lower extremities with marked muscle weakness and fixed flexion contraction in both lower extremities. She has bilateral foot drop. Her intake and output were incompletely recorded. LABORATORY DATA: Showed white cell count 5000, hemoglobin 10, hematocrit 31, MCV 98, and a platelet count of 115,000 with a manual differential showed 37% polymorphs, 42% lymphocytes and 16% monocytes. Her chemistry showed a serum sodium 143, potassium 3.7, chloride 105, bicarbonate 34, anion gap of 4, BUN 20, creatinine was 0.6. Estimated GFR was 103, glucose 108, calcium was 7.8. Total bilirubin, AST, ALT, alkaline phosphatase were normal. CK was only 45. Total protein was 5.8, albumin 3.1. Urinalysis was essentially unremarkable. ASSESSMENT: 1. This is a 55-year-old female patient who presented with generalized weakness and worsening low back pain. A CT scan of the lumbar spine showed no evidence of any compression fracture. 2. The patient is known to have spinocerebellar ataxia. She has hypertension, type 2 diabetes mellitus, hyperlipidemia, chronic kidney disease due to solitary functioning kidney, hypothyroidism, chronic obstructive pulmonary disease, gout and osteoarthritis. She apparently has had a history of colon cancer, status post partial colectomy and colostomy. History of lymphoma, treated with chemotherapy. The patient is requiring assistance in all her activities of daily living. She did have breakthrough seizures despite being on Keppra, lacosamide, Neurontin as well as diazepam. We did consult physical and occupational therapy as well as we have consulted Dr. Zayas to see if any adjustment of her anti-seizure medication is warranted. VALERIO/ARAVIND DR: SHERRILL/maurilio TID: [id number]
[2021-01-05 05:31] VITALS: BP 120/70
[2021-01-05] MEDS: levETIRAcetam 500 MG TABLET PO SCH ×3 (08:58→21:00)
[2021-01-05] MEDS: LACOSAMIDE 50 MG TABLET PO SCH ×3 (08:59→21:00)
[2021-01-05] MEDS: DULoxetine HCL 60 MG CAPSULE.DR PO SCH ×3 (08:59→21:00)
[2021-01-05] MEDS: METOPROLOL SUCC 24HR ER 50 MG TAB.ER.24H. PO SCH (09:00)
[2021-01-05] MEDS: LEVOTHYROXINE 150 MCG TABLET PO SCH (09:01)
[2021-01-05] MEDS: GABAPENTIN 300 MG CAPSULE. PO SCH ×3 (09:01→21:00)
[2021-01-05] MEDS: diazePAM 5 MG TABLET. PO SCH ×4 (09:02→21:00)
[2021-01-05] MEDS: LIDOCAINE (700MG/PATCH) PATCH. TD SCH (09:04)
[2021-01-05] MEDS: NAPROXEN 375 MG TABLET PO SCH ×4 (09:10→21:00)
[2021-01-05] MEDS: BACITRACIN ZINC TOPICAL OINT PACKET. TP SCH ×4 (09:10→21:00)
--- NOTE | 2021-01-05 11:45 | CONS ---
NEURO CONSULT REFERRING PHYSICIAN: Dr. Vo REASON FOR CONSULTATION: Generalized weakness, history of multiple sclerosis. HISTORY OF PRESENT ILLNESS: This is a 55-year-old right-handed female who was admitted through Emergency Room on 01/03/2021 on account of worsening of her generalized weakness of several days' duration. The patient also complains of visual disturbances, decreased vision bilaterally and she related that to multiple sclerosis. She has had difficulty walking due to ataxia. The patient also complains of numbness and paresthesia of the distal upper and lower extremities, intermittent urinary incontinence, severe low back pain. Initial nonenhanced head CT scan revealed no acute intracranial process, but CT of the cervical spine revealed mild cervical spondylosis and a CT of the lumbar spine revealed mild lumbar stenosis without acute changes. Neuro consult was requested because the patient had a 2-3-minute tremor of the upper extremities with jerking movements and questionable of seizure-like activities. PAST MEDICAL HISTORY: Significant for stroke, TIA, multiple sclerosis, resulted in generalized weakness, numbness and paresthesia of the upper and lower extremities and significant decreased visual acuity in both eyes. History of hypertension; hyperlipidemia; diabetes mellitus type 2; hypothyroidism; COPD; gout; osteoporosis; history of colon cancer and lymphoma, treated with chemotherapy; seizure disorder. SOCIAL HISTORY: The patient is . She smoked more than 1 pack of cigarettes daily. She denies alcohol drinking or illicit drug use. PAST SURGICAL HISTORY: Positive for a partial colectomy with a colostomy, appendectomy, total abdominal hysterectomy, tonsillectomy, cholecystectomy, status post left knee arthroscopic surgery and right rotator cuff repair. ALLERGIES: MORPHINE. REVIEW OF SYSTEMS: A 12-point review of system was performed, as mentioned above in history of present illness. CURRENT HOME MEDICATIONS: Metoprolol 50 mg p.o. daily, Prozac 20 mg p.o. daily, levothyroxine 150 mcg p.o. daily, simvastatin 40 mg p.o. at bedtime, Keppra 1000 mg twice daily, lacosamide 200 mg p.o. daily, gabapentin 600 mg b.i.d., Zetia 10 mg at bedtime, bacitracin for local application on the sores, naproxen 375 mg t.i.d., Singulair 10 mg p.o. daily, Cymbalta 60 mg b.i.d., Valium 5 mg t.i.d., lidocaine patches 2 patches daily, ____/acetaminophen 10/325 mg p.r.n. for pain. PHYSICAL EXAMINATION: GENERAL: Thin white female in no acute distress. She weighs 61.8 kilograms. VITAL SIGNS: Blood pressure 106/67, respiratory rate is 16, pulse is 52 and regular, oxygen saturation 96%, and temperature is 98.2. HEENT: Normocephalic, atraumatic, otherwise unremarkable. NECK: Supple. Negative for carotid bruit, lymphadenopathy, or thyromegaly. LUNGS: Clear to A and P. CARDIOVASCULAR: Regular rate and rhythm. Normal S1, S2. ABDOMEN: Soft. Bowel sounds positive. EXTREMITIES: Negative for cyanosis, clubbing, or pitting edema. NEUROLOGIC: Mental status: The patient is alert and oriented x 2. Speech is slow with loud tone. There is no language dysfunction. Memory, judgment and abstracting thinkings are fair. The patient denies hallucination or delusion. Cranial nerves: Decreased visual acuity and the pupils are equal and sluggishly reactive to light. The extraocular movements are intact. Motor examination: No focal muscle bulk wasting. The strength is 4/5 throughout. Sensory examination revealed diminished pinprick and light touch senses in glove and stocking distributions. Deep tendon reflexes were hypoactive at 1/4 in the upper extremity and hyperactive at 3/4 in the lower extremities. Gait not tested. The patient uses a walker and ____ for ambulation. LABORATORY DATA: CBC revealed white blood cells of 5.1 thousand, hemoglobin 10.3, hematocrit 31.3, platelet count 115,000. Chemistry reveals sodium of 146, potassium 3.7, chloride 105, CO2 is 34, BUN 20, creatinine 0.6, glucose 108, and calcium is 7.8. Liver enzymes are normal. Troponin, creatinine is normal. Urinalysis, trace urinary leukocyte esterase, otherwise unremarkable. DIAGNOSTICS: A nonenhanced head CT scan revealed no acute intracranial process. CT of the cervical spine revealed mild degenerative disk disease at multiple levels with mild spinal stenosis. Nonenhanced head CT scan revealed no acute intracranial process, otherwise unremarkable. CT of the lumbar spine revealed mild spinal canal stenosis at L4-L5, otherwise unremarkable, more prominent on the right side. IMPRESSION: 1. Generalized weakness, probably multifactorial including multiple sclerosis, chronic low back pain, osteoarthritis, diabetes mellitus, and possible peripheral neuropathy. 2. Multiple medical problems include chronic obstructive pulmonary disease, hypertension, hyperlipidemia, hypothyroidism, colon cancer, and lymphoma. 3. Questionable seizure-like activities, but the patient on multiple anticonvulsants. 4. Chronic low back pain, probably due to underlying degenerative disk disease and spinal stenosis. RECOMMENDATIONS: 1. Continue with current management initiated by Dr. Vo. 2. Continue with current home medications. 3. Physical therapy evaluation. GUICHO/KUSH/AURORA DR: Uzma TID: [id number]
[2021-01-05] MEDS ORDERED: NICOTINE 7MG PATCH. TD SCH (14:30)
[2021-01-05 16:03] VITALS: BP 126/74
[2021-01-05] MEDS: EZETIMIBE 10 MG TABLET PO SCH ×2 (20:55→21:00)
[2021-01-05] MEDS: MONTELUKAST 10 MG TABLET. PO SCH ×2 (20:55→21:00)
[2021-01-05] MEDS: SIMVASTATIN 40 MG TABLET. PO SCH ×2 (20:55→21:00)
[2021-01-05] MEDS: PATCH REMOVAL. MC SCH (21:00)
--- NOTE | 2021-01-05 21:39 | PN ---
SUBJECTIVE: The patient continued to complain of severe low back pain, weakness of the upper and lower extremities associated with numbness and paresthesia, difficulty to walk, and tendency to fall. The patient has not had any seizure activity since admission. She denies bowel or bladder incontinence. OBJECTIVE: GENERAL: Well-developed, well-nourished female in no acute distress. VITAL SIGNS: Blood pressure 120/70, respiratory rate 18, pulse is 45, oxygen saturation 93%, and temperature 99.2. HEENT: Normocephalic, atraumatic, otherwise unremarkable. NECK: Supple, negative for carotid bruit, lymphadenopathy, or thyromegaly. LUNGS: Clear to A and P. CARDIOVASCULAR: Regular rate and rhythm. Normal S1, S2. There is no S3, S4 or murmur. ABDOMEN: Soft. Bowel sounds positive. EXTREMITIES: Negative for cyanosis, clubbing, or pedal edema. NEUROLOGIC: Mental status: The patient is alert and oriented x2. Speech is slow. No language dysfunction. Memory, judgment, and abstracting thinkings are fair. The patient denies hallucination or delusion. Cranial nerves are intact. No nystagmus. There is no facial motor or sensory deficit. Hearing is intact bilaterally. The palate is elevated symmetrically. Otherwise, unremarkable. Motor examination: No focal muscle bulk wasting. The strength was -4/5 in the upper and lower extremities. Sensory examination revealed diminished pinprick and light touch senses throughout. Deep tendon reflexes were symmetric and active in the upper extremity and at 2/4, but the reflexes are hyperreflexia 3/4 in the lower extremities with a negative Babinski. Gait not tested as the patient has unsteadiness and tendency to fall. IMPRESSION: 1. Generalized weakness, probably multifactorial including diabetes mellitus, history of stroke and transient ischemic attack, hypothyroidism. 2. Difficulty to walk, probably multifactorial including chronic lower back pain, cerebellar ataxia, and possible peripheral neuropathy in the lower extremities. 3. History of lymphoma, required chemotherapy and colon cancer, required a colectomy and colostomy. RECOMMENDATIONS: 1. Continue with current management initiated by Dr. Vo. 2. Physical therapy evaluation. GUICHO/SIDDHARTHA DR: Uzma TID: [id number]
--- NOTE | 2021-01-05 23:00 | PN ---
DATE: 01/05/2021 SUBJECTIVE: The patient is resting, slightly propped up, sleeping comfortably in bed, in no apparent distress. She continued to complain of low back pain, generalized weakness. She is almost in total care. She is unable to tolerate the colostomy glue irritates her skin. PHYSICAL EXAMINATION: GENERAL: When I examined her, she looked pale, but no jaundice, cyanosis or thyromegaly. No jugular venous distention. No limb edema. VITAL SIGNS: Her heart rate was 45, blood pressure is 120/70, temperature was 99.2, respiratory rate was 18 and oxygen saturation was 93%. The rest of clinical exam stable. NEUROLOGIC: She does have a fixed flexion contraction of both lower extremities and bilateral foot drop. Her intake over the last 24 hours was 2640, output was 850. LABORATORY DATA: Her lab work seemed to be stable. Her urine culture showed less than 10,000 colony forming units per mL ASSESSMENT: 1. The patient has generalized weakness and low back pain. 2. The patient has a multitude of medical problems including multiple sclerosis, spinocerebellar ataxia, hypertension, type 2 diabetes mellitus, hyperlipidemia, chronic kidney disease due to solitary functioning kidney, hypothyroidism, chronic obstructive pulmonary disease, gout and osteoarthritis. She has a history of colon cancer, status post partial colectomy and colostomy. History of lymphoma, treated with chemotherapy. 3. The patient requests requiring assistance with all her activities of daily living. She did have breakthrough seizures despite being on Keppra, lacosamide, Neurontin as well as diazepam. PLAN: To continue with all her current medication. Continue with physical and occupational therapy. I have consulted our case work aide as the patient will be better of being in a alf. DONNA DR: Cindy TID: [id number]
== END 2021-01-05 21:20 | disposition left against medical advice (07) ==
LOC: ER 10:44 → 1 SOUTH 16:52 → INTOOBSV 16:52 → 1 SOUTH 01-05 18:58
PROVIDERS: ADMIT Internal Medicine; ATTEND Internal Medicine
DX: R53.1 Weakness (principal); C18.9 Malignant neoplasm of colon, unspecified; M54.5 Low back pain; G89.29 Other chronic pain; C85.90 Non-Hodgkin lymphoma, unspecified, unspecified site; G35 Multiple sclerosis; D69.6 Thrombocytopenia, unspecified; E03.9 Hypothyroidism, unspecified; E78.00 Pure hypercholesterolemia, unspecified; G40.909 Epilepsy, unspecified, not intractable, without status epilepticus; G11.9 Hereditary ataxia, unspecified; E78.5 Hyperlipidemia, unspecified; E11.22 Type 2 diabetes mellitus with diabetic chronic kidney disease; I12.9 Hypertensive chronic kidney disease with stage 1 through stage 4 chronic kidney disease, or unspecified chronic kidney disease; N18.9 Chronic kidney disease, unspecified; J44.9 Chronic obstructive pulmonary disease, unspecified; H54.7 Unspecified visual loss; M10.9 Gout, unspecified; M19.90 Unspecified osteoarthritis, unspecified site; M41.9 Scoliosis, unspecified; M47.812 Spondylosis without myelopathy or radiculopathy, cervical region; M47.816 Spondylosis without myelopathy or radiculopathy, lumbar region; M48.061 Spinal stenosis, lumbar region without neurogenic claudication; R32 Unspecified urinary incontinence; R29.6 Repeated falls; M81.0 Age-related osteoporosis without current pathological fracture; M79.7 Fibromyalgia; Z85.038 Personal history of other malignant neoplasm of large intestine; F17.210 Nicotine dependence, cigarettes, uncomplicated; Z86.73 Personal history of transient ischemic attack (TIA), and cerebral infarction without residual deficits; Z90.49 Acquired absence of other specified parts of digestive tract; Z80.0 Family history of malignant neoplasm of digestive organs; Z90.710 Acquired absence of both cervix and uterus; Z92.21 Personal history of antineoplastic chemotherapy; Z93.3 Colostomy status; Z99.3 Dependence on wheelchair; Z71.6 Tobacco abuse counseling
CPT/HCPCS: 36415; 70450; 72125; 72131; 80053; 81001; 82550; 84443; 84484; 85025; 87086; 93005; 96361; 96374; 97162; 99285; 99406; G0378; J1885; G0379

== ENCOUNTER 2021-07-10 22:05 | Emergency (ER) | payer MEDICAID ==
[~2021-07-10] VITALS: Ht 162.6 cm; Wt 63.1 kg
[~2021-07-10 22:05] MED LIST changes: -DULO60CA6 PO; +DULO60CA7 PO; -FLUO20CA20 PO; +FLUO20CA22 PO
--- NOTE | 2021-07-10 22:11 | PHYS DOC ---
Past History Past Medical History: Arthritis, Cancer, UTI Past Medical History Hx. MRSA Hx. Lymphoma Hx. Chronic Back pain Multiple Sclerosis Hx. of Possible Narcotic Seeking Behaviors. Pt. also goes by last name Derick Past Surgical History: Other Past Surgical History colon, SB Smoking: Cigarettes Drug Use: Amphetamine, Marijuana, Methamphetamine, Opiates General Adult HPI: HPI: ".. I left yesterday.. I signed out AMA.. I just did not want to stay longer.. and I wanted to picker my check.. for disability.. :' Patient is a 56 year old female who presents with above Hx. with complaints of exacerbation of her chronic back pain. Reportedly admitted to and signed out AMA Yesterday. Patient has gotten all her care at for her lymphoma and resection and colonoscopy. Patient has a history of lymphoma has not received radiation or chemotherapy. Did have surgery. Patient does have a history of chronic back pain., fibromyalgia, polysubstance abuse, urinary tract infections, MS, seizure disorder, hyperlipidemia , hypothryroidism and MRSA.. Patient presents today complaining of exacerbation of her chronic back pain. Patient has had previous surgeries of appendectomy, cholecystectomy, colostomy, colostomy revision, abscess drainage, hysterectomy, and cystoscopy rectoscope week evaluation with indwelling urethral stents. Some hx of possible narcotic seeking behaviors. Pt. also goes by last name Derick. Review of Systems: Review of Systems: Constitutional: Denies fever or chills Eyes: Denies change in visual acuity HENT: Denies nasal congestion or sore throat Respiratory: Denies cough or shortness of breath Cardiovascular: Denies chest pain or edema GI: Denies abdominal pain, nausea, vomiting, bloody stools or diarrhea : Denies dysuria Musculoskeletal: Complains of back pain Integument: Denies rash Neurologic: Denies headache, focal weakness or sensory changes Endocrine: Denies polyuria or polydipsia Lymphatic: Denies swollen glands Psychiatric: Denies depression or anxiety Family History: Family History: Noncontributory presentation Current Medications: Current Meds: See nursing for home meds Allergies: Allergies: No known drug allergies Physical Exam: PE: Constitutional: Complains of moderate acute distress, non-toxic appearance. [] HENT: Normocephalic, atraumatic, bilateral external ears normal, oropharynx dry, no oral exudates, nose normal. [] Eyes: PERRLA, EOMI, conjunctiva normal, no discharge. [] Neck: Normal range of motion, no tenderness, supple, no stridor. [] Cardiovascular:Heart rate regular rhythm, no murmur [] Lungs & Thorax: Bilateral breath sounds equal apex with scattered wheezes auscultation [] Abdomen: Bowel sounds decreased, soft, no tenderness, no masses, no pulsatile masses. Ostomy-colon. Skin: Warm, dry, no erythema, no rash. Poor turgor Back: mid back tenderness, no CVA tenderness. [] Extremities: No tenderness, no cyanosis, no clubbing, ROM intact, no edema. [] Neurologic: Alert and oriented X 3, movers all ext on request, appears to have distal sensory., no focal deficits noted. [] Psychologic: Affect normal, judgement normal, mood normal. [] EKG: EKG: My interpretation of EKG shows bradycardia at 58 bpm. Low voltage thrill leads. Does have a right bundle branch block and some nonspecific changes anterior septal region. No findings of acute STEMI with contralateral changes time of EKG is 00 17 minutes [] Radiology/Procedures: Radiology/Procedures: [[address] [address] IMAGING REPORT Signed PATIENT: JOSE RAMON AMEZQUITA ACCOUNT: [id number] : 1965 LOCATION: ER AGE: 56 SEX: F EXAM STATUS: REG ER ORD. PHYSICIAN: NEY PARIS MD REASON: cough PROCEDURE: PORTABLE CHEST 1V EXAM: CHEST ONE VIEW. HISTORY: Cough. COMPARISON: 11/28/2020. FINDINGS: A frontal view of the chest is obtained. There are mild diffuse interstitial infiltrates on the right greater than left. There is no pneumothorax or pleural effusion. The heart is not enlarged. There are atherosclerotic calcifications of the aorta. IMPRESSION: 1. Bilateral interstitial infiltrates suggest atypical pneumonia. Electronically signed by: Champ Nur MD (07/11/2021 12:30 AM) [facility] DICTATED AND SIGNED BY: RE NUR MD DATE: 07/11/2127 CC: NEY PARIS MD; ANTONIO LUKE ~[id number] 0 ][address] [place] [address] [id number] IMAGING REPORT Signed PATIENT: JOSE RAMON AMEZQUITA ACCOUNT: [id number] : 1965 LOCATION: ER AGE: 56 SEX: F EXAM STATUS: REG ER ORD. PHYSICIAN: NEY PARIS MD REASON: back pain, hx mrsa, iv drug use PROCEDURE: CT THORACIC SPINE WO CONTRAST EXAM: CT thoracic and lumbar spine without contrast. HISTORY: Back pain, MRSA. TECHNIQUE: CT of the thoracic and lumbar spine was performed without intravenous contrast. One or more of the following individualized dose reduction techniques were utilized for this examination: 1. Automated exposure control. 2. Adjustment of the mA and/or kV according to patient size. 3. Use of iterative reconstruction technique. COMPARISON: None. FINDINGS: A right ureteral stent is in place. There is mild right hydronephrosis. A calculus adjacent to the stent within the distal ureter is partially visualized but measures approximately 6 mm. Cortical scarring is noted within the right kidney along with a few benign cysts. Bilateral renal calculi measure up to 4 mm on the left. Cholecystectomy clips are noted. There are diffuse atherosclerotic calcifications. There are minimal groundglass opacities in the right lung. There are atherosclerotic calcifications of the coronary arteries. Thoracic alignment is maintained. No fractures are identified. Mild wedging at T11 is likely developmental. Endplate remodeling indicates mild diffuse thoracic degenerative disc disease. There is moderate bilateral neural foraminal stenosis throughout the mid thoracic spine. It is focally moderate to severe on the right at C4-5. There is no clear central canal stenosis. There is a mild lumbar levocurvature. No fractures are identified. Intervertebral disc heights are maintained. There is mild diffuse endplate remodeling. Facet osteoarthritis is moderate to severe from L3 through S1. There is only mild foraminal narrowing from L3 through L5. IMPRESSION: 1. No thoracic or lumbar fracture. 2. Moderate to severe lumbar facet osteoarthritis. No clear central canal stenosis. Multilevel neural foraminal stenosis as above. 3. Partially visualized right distal ureteral calculus. Right ureteral stent in place. Bilateral renal calculi. 4. Minimal groundglass opacities in the right lung suggest mild pneumonitis. Electronically signed by: Champ Nur MD (07/11/2021 1:49 AM) [facility] DICTATED AND SIGNED BY: RE NUR MD DATE: 07/11/21132 CC: NYE PARIS MD; ANTONIO LUKE ~[facility] 0 Heart Score: C/O Chest Pain: N/A Risk Factors: Risk Factors: DM, Current or recent (<one month) smoker, HTN, HLP, family history of CAD, obesity. Risk Scores: Score 0 - 3: 2.5% MACE over next 6 weeks - Discharge Home Score 4 - 6: 20.3% MACE over next 6 weeks - Admit for Clinical Observation Score 7 - 10: 72.7% MACE over next 6 weeks - Early Invasive Strategies Course & Med Decision Making: Course & Med Decision Making Pertinent Labs and Imaging studies reviewed. (See chart for details) Still awaiting records from 0130 hrs. Pt. to take Bactrim twice a day. Follow up with primary at . Have primary Review ED work for her back pain complaints. Continue Bactrim for MRSA coverage. Pt. to follow up urine cultures. Review ED work up with her p rockysalud. Follow up pending cultues. Recommeded to pt.to go by one name only when seekilng medical care so there can be a continuity of records and treatments. Hx of prior placement on Hospice. records arriving at 03:45 in peroidic bouts. Impression: 1. Exacerbation of Chronic Back Pain 2. Hx. Recent Dx. MRSA 3. Hx. Lymphoma 4. Hx. Non-complaince 5. Hx. Polysubstance abuse 6. Anemia Hgb 9.4 7. Elevated CRP 10.1 8. Mild Hypokalemia 3.4 9. Hx of MS- Multiple Sclerosis 10.Hx. Seizure Disorder 11. UTI 12. Decub 13. Hx of Possible Narcotic Seekng Behaviors 14. Malnutrition Alb. [] Dragon Disclaimer: Amber Disclaimer: This electronic medical record was generated, in whole or in part, using a voice recognition dictation system. Departure Departure: Scripts Sulfamethoxazole/Trimethoprim (BACTRIM DS TABLET) 1 Each Tablet 1 TAB PO BID for hx. MRSA, UTI for 10 Days, #20 TAB 0 Refills Prov: NEY PARIS MD 07/11/21 Amber Disclaimer This chart was dictated in whole or in part using Voice Recognition software in a busy, high-work load, and often noisy Emergency Department environment. It may contain unintended and wholly unrecognized errors or omissions. Dragon Disclaimer This chart was dictated in whole or in part using Voice Recognition software in a busy, high-work load, and often noisy Emergency Department environment. It may contain unintended and wholly unrecognized errors or omissions. NYE PARIS MD Jul 10, 2021 22:11
[2021-07-10] MEDS ORDERED: IV RINGERS SOLUTION,LACTATED 1,000 ML IV SCH (23:45)
[2021-07-11 00:04] LABS: INFLUENZA A PATIENT NEGATIVE (NEGATIVE); INFLUENZA B PATIENT NEGATIVE (NEGATIVE)
--- NOTE | 2021-07-11 00:26 | EKG ---
[address] [address] Test Date: 2021-07-11 Test Time: 00:17:52 Pat Name: JOSE RAMON AMEZQUITA Department: Room: Gender: F Letterer: : 1965 Requested By: NEY PARIS Order Number: [id number] Reading MD: Wes Smiley Measurements Intervals [place]coe Rate: 58 P: 61 ME: 170 QRS: -16 QRSD: 124 T: 40 QT: 492 QTc: 487 Interpretive Statements SINUS RHYTHM LOW LIMB LEAD VOLTAGE RIGHT BUNDLE BRANCH BLOCK NON SPECIFIC ST CHANGES Electronically Signed On 07-11-2021 14:47:36 COMPLEX DIRECTOR by Wes Smiley
--- NOTE | 2021-07-11 00:32 | RAD ---
EXAM: CHEST ONE VIEW. HISTORY: Cough. COMPARISON: 11/28/2020. FINDINGS: A frontal view of the chest is obtained. There are mild diffuse interstitial infiltrates on the right greater than left. There is no pneumotho rax or pleural effusion. The heart is not enlarged. There are atherosclerotic calcifications of the a deshaun. IMPRESSION: 1. Bilateral interstitial infiltrates suggest atypical pneumonia. Electronically signed by: Champ Nur MD (07/11/2021 12:30 AM) [facility]
[2021-07-11 01:07] LABS: BASO # 0.1 x10^3/uL (0.0-0.2); BASO % 1 % (0-3); EOS # 0.1 x10^3/uL (0.0-0.7); EOS % 2 % (0-3); HEMATOCRIT 28.2 % (36.0-47.0); HEMOGLOBIN 9.4 g/dL (12.0-15.5); LYMPH % 32 % (24-48); MEAN CORPUSCULAR HEMOGLOBIN 33 pg (25-35); MEAN CORPUSCULAR HGB CONC 33 g/dL (31-37); MEAN CORPUSCULAR VOLUME 98 fL (79-100); MONO # 1.2 x10^3/uL (0.0-1.1); MONO % 19 % (0-9); NEUT # 2.8 x10^3uL (1.8-7.7); NEUT % 46 % (31-73); PLATELET COUNT 309 x10^3/uL (140-400); RED BLOOD COUNT 2.87 x10^6/uL (3.50-5.40); RED CELL DISTRIBUTION WIDTH 16.9 % (11.5-14.5); WHITE BLOOD COUNT 6.2 x10^3/uL (4.0-11.0)
[2021-07-11 01:10] LABS: CREATININE 0.7 mg/dL (0.6-1.0); GFR 86.2; POTASSIUM 3.4 mmol/L (3.5-5.1)
[2021-07-11 01:22] LABS: C REACTIVE PROTEIN 10.1 mg/L (0-3.3)
--- NOTE | 2021-07-11 01:51 | RAD ---
EXAM: CT thoracic and lumbar spine without contrast. HISTORY: Back pain, MRSA. TECHNIQUE: CT of the thoracic and lumbar spine was performed without intravenous contrast. One or mor e of the following individualized dose reduction techniques were utilized for this examination: 1. Automated exposure control. 2. Adjustment of the mA and/or kV according to patient size. 3. Use of iterative reconstruction technique. COMPARISON: None. FINDINGS: A right ureteral stent is in place. There is mild right hydronephrosis. A calculus adjacent to the stent within the distal ureter is partially visualized but measures approximately 6 mm. Corti fabiano scarring is noted within the right kidney along with a few benign cysts. Bilateral renal calculi measure up to 4 mm on the left. Cholecystectomy clips are noted. There are diffuse atherosclerotic calcifications. There are minimal groundglass opacities in the right lung. There are atherosclerotic calcifications of the coronary art eries. Thoracic alignment is maintained. No fractures are identified. Mild wedging at T11 is likely developm ental. Endplate remodeling indicates mild diffuse thoracic degenerative disc disease. There is modera te bilateral neural foraminal stenosis throughout the mid thoracic spine. It is focally moderate to s evere on the right at C4-5. There is no clear central canal stenosis. There is a mild lumbar levocurvature. No fractures are identified. Intervertebral disc heights are ma intained. There is mild diffuse endplate remodeling. Facet osteoarthritis is moderate to severe from L3 through S1. There is only mild foraminal narrowing from L3 through L5. IMPRESSION: 1. No thoracic or lumbar fracture. 2. Moderate to severe lumbar facet osteoarthritis. No clear central canal stenosis. Multilevel neural foraminal stenosis as above. 3. Partially visualized right distal ureteral calculus. Right ureteral stent in place. Bilateral jayna l calculi. 4. Minimal groundglass opacities in the right lung suggest mild pneumonitis. Electronically signed by: Champ Nur MD (07/11/2021 1:49 AM) [facility]
[2021-07-11] MEDS ORDERED: IV NORMAL SALINE 250ML 250 ML ONE ×2 (02:08→02:12)
[2021-07-11] MEDS ORDERED: VANCOMYCIN 1 GM VIAL. ONE (02:13)
[2021-07-11] MEDS ORDERED: SMZ/TMP 800/160MG TABLET. PO ONE (02:15)
[2021-07-11] MEDS ORDERED: VANCOMYCIN 1 GM in IV NORMAL SALINE 250ML 250 ML IV ONE (02:15)
[2021-07-11] MEDS ORDERED: IV RINGERS SOLUTION,LACTATED 1,000 ML IV ONE (02:15)
[2021-07-11] MEDS ORDERED: SULF1TAB24 PO (03:53)
[2021-07-11 04:00] LABS: BACTERIA,URINE FEW /HPF (0-FEW); BILIRUBIN,URINE NEG (NEG); CLARITY,URINE HAZY; COLOR,URINE YELLOW; GLUCOSE,URINE NEG (NEG); NITRITE,URINE NEG (NEG); SQUAMOUS EPITHELIAL CELL,UR OCC /LPF; UROBILINOGEN,URINE 0.2 mg/dL (0.2 mg/dL)
[2021-07-11 04:03] LABS: BARBITURATES NEG (NEG); BENZODIAZEPINES POS (NEG); CANNABINOIDS NEG (NEG); COCAINE NEG (NEG); METHADONE NEG (NEG); OPIATES NEG (NEG); PHENCYCLIDINE NEG (NEG)
[2021-07-11 04:06] LABS: AMPHETAMINE/METHAMPHETAMINE NEG (NEG)
[2021-07-11 05:01] VITALS: BP 122/51
== END 2021-07-11 05:04 | disposition home or self-care (01) ==
LOC: ER 22:05 → MERGE 22:05 → ER 07-11 05:04
DX: G89.29 Other chronic pain (principal); M54.89 Other dorsalgia; D64.9 Anemia, unspecified; N39.0 Urinary tract infection, site not specified; R79.82 Elevated C-reactive protein (CRP); E87.6 Hypokalemia; G35 Multiple sclerosis; G40.909 Epilepsy, unspecified, not intractable, without status epilepticus; E46 Unspecified protein-calorie malnutrition; F19.10 Other psychoactive substance abuse, uncomplicated; F17.210 Nicotine dependence, cigarettes, uncomplicated; M79.7 Fibromyalgia; E78.5 Hyperlipidemia, unspecified; M19.90 Unspecified osteoarthritis, unspecified site; Z20.822 Contact with and (suspected) exposure to COVID-19; Z68.23 Body mass index [BMI] 23.0-23.9, adult; Z85.72 Personal history of non-Hodgkin lymphomas; Z86.14 Personal history of Methicillin resistant Staphylococcus aureus infection; Z87.440 Personal history of urinary (tract) infections; Z90.89 Acquired absence of other organs; Z90.49 Acquired absence of other specified parts of digestive tract; Z93.3 Colostomy status; Z90.710 Acquired absence of both cervix and uterus
CPT/HCPCS: 36415; 71045; 72128; 72131; 80048; 80307; 81001; 82550; 83880; 84484; 85025; 86140; 87040; 87086; 87428; 93005; 96361; 96365; 99285; J3370; J7050; J7120; 99283